=== PATIENT | male | born 1960 | race African-American/Black ===

== ENCOUNTER 2018-02-26 03:49 | Inpatient (IN) | payer OTHER ==
[~2018-02-26] VITALS: Ht 177.8 cm; Wt 81.6 kg
--- NOTE | 2018-02-26 04:00 | NUR ---
TO BED 12 A 58 YO MALE PT BIBA FROM [facility] J TUBE REPLACEMENT. PATIENT IS AWAKE, ALERT, RESPONSIVE. NONVERBAL. VSS. SKIN WARM AND DRY. NOTED PRESENCE OF LEFT NEPHROSTOMY TUBE AND SUPRAPUBIC CATHETER. JGTUBE IN PLACE, UNABLE TO ASPIRATE AND INSTILL AIR. KEPT HOB ELEVATED. COMFORT MEASURES RENDERED. SAFETY MEASURES RENDERED.
--- NOTE | 2018-02-26 04:14 | NUR ---
PATIENT TO [facility].
[2018-02-26] MEDS ORDERED: IV NS 0.9% 1,000 ML BAG IV ONE (04:30)
--- NOTE | 2018-02-26 04:30 | NUR ---
STARTED A SALINE LOCK ON THE RIGHT INDEX FINGER GAUGE 22.
[2018-02-26 05:22] LABS: CALCIUM, SERUM 9.4 mg/dL (8.5-10.1); POTASSIUM 4.1 mmol/L (3.5-5.1)
[2018-02-26 05:26] LABS: INR 1.06 (0.87-1.13)
[2018-02-26 05:28] LABS: ALBUMIN 3.3 g/dL (3.4-5.0); BILIRUBIN,DIRECT 0.1 mg/dL (0.0-0.2); BILIRUBIN,TOTAL 0.5 mg/dL (0.2-1.0); TOTAL PROTEIN, SERUM 10.2 g/dL (6.4-8.2)
[2018-02-26 05:38] LABS: BASOPHILS % (AUTO) 0.1 % (0.0-2.0); EOSINOPHILS % (AUTO) 3.9 % (0.0-6.0); HEMATOCRIT 43 % (39-51); HEMOGLOBIN 13.7 g/dL (13.5-17.5); LYMPHOCYTES # (AUTO) 2.4 /CMM (0.8-4.8); LYMPHOCYTES % (AUTO) 16.8 % (20.0-44.0); MEAN CORPUSCULAR HGB CONC 32 g/dl (31.0-36.0); MEAN CORPUSCULAR VOLUME 75 fL (80-96); MONOCYTES # (AUTO) 0.6 /CMM (0.1-1.30); MONOCYTES % (AUTO) 4.1 % (2.0-12.0); NEUTROPHILS # (AUTO) 10.6 /CMM (1.8-8.9); NEUTROPHILS % (AUTO) 75.1 % (43.0-81.0); PLATELET COUNT (AUTO) 282 /CMM (150-450); RDW COEFFICIENT OF VARIATION 19.7 (11.5-15.0); RED BLOOD CELL COUNT(AUTO) 5.67 MIL/uL (4.5-6.0); WHITE BLOOD COUNT (AUTO) 14.2 K/uL (4.3-11.0)
--- NOTE | 2018-02-26 06:00 | NUR ---
MS RN NOTE RECEIVED REPORT FROM AUTHORIZATION REPRESENTATIVEELSI HENRIQUEZ. PATIENT TO BE ADMITTED TO MED-SURGE FLOOR.
[2018-02-26] MEDS ORDERED: DOCU100T2 GT (06:06)
[2018-02-26] MEDS ORDERED: APIX5TAB GT (06:06)
[2018-02-26] MEDS ORDERED: LEVO25TA7 GT (06:06)
[2018-02-26] MEDS ORDERED: FURO-145 GT (06:06)
[2018-02-26] MEDS ORDERED: INSU100V27 SQ (06:06)
[2018-02-26] MEDS ORDERED: POTA40LI2 GT (06:06)
[2018-02-26] MEDS ORDERED: METO100T14 GT (06:06)
[2018-02-26] MEDS ORDERED: ENOX40DI SQ (06:06)
[2018-02-26] MEDS ORDERED: ASCO500T10 GT (06:06)
[2018-02-26] MEDS ORDERED: LEVE500T9 GT (06:06)
[2018-02-26] MEDS ORDERED: BLOO-140 IN (06:06)
[2018-02-26] MEDS ORDERED: DOXA2TAB GT (06:06)
[2018-02-26 06:07] LABS: APPEARANCE,URINE CLOUDY (CLEAR); COLOR,URINE DARK YELLOW (YELLOW)
[2018-02-26 06:08] LABS: BILIRUBIN,URINE NEGATIVE (NEGATIVE); BLOOD, URINE 2+ Ery/uL (NEGATIVE); KETONES,URINE NEGATIVE (NEGATIVE); LEUKOCYTE ESTERASE ,URINE 2+ (NEGATIVE); NITRITE, URINE NEGATIVE (NEGATIVE); PROTEIN,URINE 2+ mg/dl (NEGATIVE); UGLUCOSE NEGATIVE (NEGATIVE); UROBILINOGEN,URINE 0.2 EU/dL (0.2)
[2018-02-26 06:14] LABS: BACTERIA,URINE Many /HPF (None Seen); RBC,URINE 21-50 /HPF (0-2); SQUAMOUS EPITHELIAL CELL,UR Few /HPF (None Seen); URINE AMORPHOUS PHOSPHATES Many /HPF (None Seen); WBC,URINE 81-100 /HPF (0-3)
--- NOTE | 2018-02-26 06:15 | NUR ---
TRANSFERRED PATIENT TO MS BED, NO INCIDENT NOTED. JUAN FRANCISCO CALZADA AT BEDSIDE.
--- NOTE | 2018-02-26 06:25 | NUR ---
MS RN OPENING NOTE RECEIVED PATIENT ON A GURNEY, ALERT, APHASIC, ABLE TO COMPREHEND AND RESPOND TO QUESTIONS BY NODDING HIS HEAD. RESPIRATIONS EVEN AND UNLABORED, NO SOB NOTED, PATIENT ON ROOM AIR WITH O2 SAT OF 95%. PATIENT WAS TRANSFERRED TO BED, MADE COMFORTABLE. VITAL SIGNS TAKEN BP: 124/76, HR:83, TEMP 97.9. PATIENT IN STABLE CONDITION, MD WAS MADE AWARE OF PATIENT'S ARRIVAL TO THE UNIT. AWAITING FOR ORDERS FOR FURTHER CARE. WILL ENDORSE TO AM SHIFT FOR CONTINUATION OF CARE.
[2018-02-26] MEDS ORDERED: CEFTRIAXONE 1 G in IV NS 0.9% 50 ML IV SCH (06:30)
[2018-02-26] MEDS ORDERED: ONDANSETRON HCL/PF 4 MG/2 ML VIAL IVP PRN (06:30)
[2018-02-26] MEDS ORDERED: Z GUARD REMEDY 2 OZ OINT TP PRN (06:30)
[2018-02-26 08:00] VITALS: BP 139/77
[2018-02-26] MEDS: PANTOPRAZOLE 40 MG VIAL IV SCH (08:16)
[2018-02-26] MEDS: BISACODYL SUPP (10 MG) 10 MG/SUPP.RECT SUPP.RECT RC SCH (08:16)
[2018-02-26] MEDS: IV D5/0.45 NACL 1,000 ML IV PRN ×2 (08:16→23:19)
--- NOTE | 2018-02-26 08:30 | NUR ---
M/S RN - Admission Admitted pt from ER with the diagnosis of GJ-tube malfunction. Patient is awake, A/O x 2-3, non-verbal but able to make needs known by denies abdominal pain, no c/o SOB, no evidence of resp. distress. Supra-pubic catheter and left nephrostomy tube intact. IVF D5 1/2 NS at 75 ml/hr infusing well on the right index finger with no complications. Skin assessment documented and photos taken on gluteal fold excoriation, sacral MASD, GJ-tube site redness, bilateral heels. Wound and dietary triggered for low natanael and skin breakdown. Will order isoflex bed and turn/reposition q2h for skin management. All needs anticipated and met. Patient educated on the treatment plan. Admission orders noted and implemented. Fall and aspiration precautions maintained. Will continue to monitor closely.
[2018-02-26] MEDS: CEFTRIAXONE 1 G in IV NS 0.9% 50 ML IV SCH (09:20)
--- NOTE | 2018-02-26 11:20 | NUR ---
WOUND CARE CONSULT: PT PRESENTS WITH IMMOBILITY, SCARRING TO SACRAL/BUTTOCKS AREAS AND HEELS, ANKLES, LOWER LEGS. PT ALSO NOTED TO HAVE GLUTEAL CREASE EXCORIATION, PRESENT ON ADMISSION. NEPHROSTOMY TUBE, J TUBE (CLAMPED) AND SUPRAPUBIC CATH NOTED. ALL SKIN PROTECTION AND SKIN CARE RECOMMENDATIONS DISCUSSED WITH NURSING STAFF. ISOFLEX LOW AIRLOSS BED TO BE PLACED. WILL SEE PRN. DE LA PAZ IN AGREEMENT WITH PLAN OF CARE. Addendum: 02/26/18 at 1122 by PAULO BAH WNDNU Amended: Links added.
[2018-02-26] MEDS ORDERED: MINERAL OIL/PETROLATUM,WHITE 120 GM JAR TP PRN (11:30)
[2018-02-26 16:00] VITALS: BP 126/73
--- NOTE | 2018-02-26 18:36 | NUR ---
MS RN CLOSING NOTES Patient is resting comfortably in bed with no signs or symptoms of acute pain/distress. Patient has no SOB while on room air, vital signs are WNL. Peripheral IV in the right index finger is running D5 1/2 NS at 75 mL/hr. Patient received abdominal/pelvic CT scan; as per MUSHROOM LABORER, feedings can resume via J-tube, but G-tube remains occluded. All prescribed medications and treatments have been carried out. Bed is in low/locked position with call olivares in reach. Continuity of care will transfer to shift commander nurse.
--- NOTE | 2018-02-26 19:30 | NUR ---
MS RN OPENING NOTES RECEIVED PT IN BED, ALERT, AWAKE,NON VERBAL. ON ROOM AIR RESPIRATIONS EVEN, UNLABORED, NO APPARENT DISTRESS NOTED. NO S/SX OF PAIN OR DISCOMFORT NOTED. IV SITE RT INDEX FINGER INTACT, PATENT. CALL LIGHT WITHIN REACH. BED LOCKED IN LOWEST POSITION. ATTENDED ALL NEEDS. WILL CONTINUE TO MONITOR ACCORDINGLY.
[2018-02-26 20:00] VITALS: BP 127/78
[2018-02-26 22:00] VITALS: BP 126/76
[2018-02-26] MEDS: BLOOD SUGAR DIAGNOSTIC 1 EACH STRIP IN SCH (23:01)
[2018-02-26] MEDS: LEVETIRACETAM (250 MG) 250 MG TABLET PO SCH (23:23)
[2018-02-26] MEDS: METOPROLOL TARTRATE 50 MG TABLET PO SCH (23:24)
[2018-02-27] MEDS ORDERED: INSULIN LISPRO 100 UNIT SQ SCH
[2018-02-27] MEDS: BLOOD SUGAR DIAGNOSTIC 1 EACH STRIP IN SCH ×4 (01:28→17:00)
--- NOTE | 2018-02-27 07:00 | NUR ---
REPORT RECEIVED AT THE BEDSIDE. PATIENT IS RESTING COMFORTABLY IN BED. NO SOB OR DISTRESS NOTED AT THIS TIME. PATIENT REPORTS LITTLE PAIN IN HIS HEAD. WILL FOLLOW UP WITH PAIN MEDICATIONS. BED IN A LOW POSITION, CALL LIGHT WITHIN PATIENT REACH, WILL CONTINUE TO MONITOR.
--- NOTE | 2018-02-27 07:01 | NUR ---
MS RN CLOSING NOTES PT IN BED RESTING COMFORTABLY NO S/SX OF PAIN OR DISCOMFORT NOTED. KEPT CLEAN AND COMFORTABLE. ATTENDED ALL NEEDS. WILL CONTINUE TO MONITOR ACCORDINGLY.
--- NOTE | 2018-02-27 07:59 | NUR ---
EMAIL MARKETING INTERN, MURPHY, ON FLOOR. INFORMED EMAIL MARKETING INTERN OF ANTONIA'S NOTE YESTERDAY ABOUT STARTING FEEDING THROUGH THE J TUBE YESTERDAY. EMAIL MARKETING INTERN, STATES OK TO RESUME FACILITY FEEDING. WILL PLACE ORDERS AND START.
[2018-02-27 08:00] VITALS: BP 115/77
[2018-02-27] MEDS: LEVETIRACETAM (250 MG) 250 MG TABLET PO SCH ×2 (08:26→21:18)
[2018-02-27] MEDS: LEVOTHYROXINE SODIUM 25 MCG TABLET PO SCH (08:26)
[2018-02-27] MEDS: CEFTRIAXONE 1 G in IV NS 0.9% 50 ML IV SCH (08:26)
[2018-02-27] MEDS: BISACODYL SUPP (10 MG) 10 MG/SUPP.RECT SUPP.RECT RC SCH (08:27)
[2018-02-27] MEDS: ASCORBIC ACID 500 MG TABLET PO SCH (08:27)
[2018-02-27] MEDS: METOPROLOL TARTRATE 50 MG TABLET PO SCH ×2 (08:27→21:19)
[2018-02-27] MEDS: PANTOPRAZOLE 40 MG VIAL IV SCH (08:27)
[2018-02-27] MEDS ORDERED: ENOXAPARIN SODIUM 40 MG/0.4 ML DISP.SYRIN SQ SCH (09:00)
[2018-02-27] MEDS ORDERED: DOCUSATE SODIUM 100 MG CAPSULE PO SCH (09:00)
--- NOTE | 2018-02-27 09:10 | NUR ---
ADMINISTERED SUPPOSITORY ORDERED. PT TOLERATED WELL.
--- NOTE | 2018-02-27 10:07 | NUR ---
PT HAS A SMALL BOWEL MOVEMENT AFTER SUPPOSITORY PLACEMENT.
[2018-02-27] MEDS: GLYTROL 1,000 ML BAG GT PRN (10:12)
--- NOTE | 2018-02-27 10:26 | NUR ---
CALLED PHARMACY ABOUT MISSING ELEQUIS. PHARMACY STATE THEY ARE SENDING IT.
[2018-02-27 10:28] LABS: BASOPHILS # (AUTO) 0.1 /CMM (0.0-0.2); BASOPHILS % (AUTO) 0.5 % (0.0-2.0); EOSINOPHILS % (AUTO) 4.4 % (0.0-6.0); HEMATOCRIT 38 % (39-51); HEMOGLOBIN 12.1 g/dL (13.5-17.5); LYMPHOCYTES # (AUTO) 2.6 /CMM (0.8-4.8); MEAN CORPUSCULAR HGB CONC 32 g/dl (31.0-36.0); MEAN CORPUSCULAR VOLUME 75 fL (80-96); MONOCYTES # (AUTO) 0.5 /CMM (0.1-1.30); MONOCYTES % (AUTO) 4.6 % (2.0-12.0); NEUTROPHILS % (AUTO) 68.5 % (43.0-81.0); PLATELET COUNT (AUTO) 263 /CMM (150-450); RED BLOOD CELL COUNT(AUTO) 5.05 MIL/uL (4.5-6.0); WHITE BLOOD COUNT (AUTO) 11.7 K/uL (4.3-11.0)
[2018-02-27 10:54] LABS: CALCIUM, SERUM 8.8 mg/dL (8.5-10.1); CREATININE 0.9 mg/dL (0.6-1.3); PHOSPHORUS 2.6 mg/dL (2.5-4.9); POTASSIUM 3.6 mmol/L (3.5-5.1)
[2018-02-27 10:57] LABS: THYROID STIMULATING HORMONE 1.429 uIU/mL (0.358-3.74)
--- NOTE | 2018-02-27 10:59 | NUR ---
CONFIRMED WITH SURGERY, PT ON SCHEDULE FOR TOMORROW MORNING. WILL PLACE NPO POST MIDNIGHT.
--- NOTE | 2018-02-27 12:12 | NUR ---
CALLED PHARMACY AGAIN PT ISIDRO IS STILL NOT ON THE FLOOR. THEY STATE SOMEONE WILL DELIVER TO THE CASSETTE.
--- NOTE | 2018-02-27 12:15 | NUR ---
GLORIA ARRINGTON, ON FLOOR. ASKED ABOUT FLUIDS PATIENT HAS STARTED FEEDING. SENIOR LEAD PROJECT MANAGER STATES OK TO HOLD FLUIDS FOR NOW AND RESTART ONCE PT IS NPO TONIGHT MIDNIGHT.
[2018-02-27] MEDS: APIXABAN 5 MG TABLET GT SCH ×2 (13:41→16:59)
[2018-02-27 16:00] VITALS: BP 97/67
[2018-02-27] MEDS: DOCUSATE SODIUM LIQ 100 MG/10 ML UDC GT SCH (16:59)
[2018-02-27] MEDS: DOXAZOSIN MESYLATE (1 MG) 1 MG TABLET PO SCH (17:00)
--- NOTE | 2018-02-27 18:50 | NUR ---
NO SIGNIFICANT CHANGES IN PATIENT CONDITION. NO SOB OR DISTRESS NOTED. PATIENT DOES NOT APPEAR TO BE IN PAIN, NO FACIAL GRIMACE. BED IN A LOW POSITION, TUBE FEEDING TOLERATED WELL. WILL ENDORSE TO BUSINESS ASST TO STOP TUBE FEEDING AT MIDNIGHT FOR PREP FOR PROCEDURE TOMORROW.
--- NOTE | 2018-02-27 19:35 | NUR ---
MS RN OPENING NOTES RECEIVED PT IN BED ALERT, AWAKE, NONVERBAL, ON ROOM AIR, RESPIRATIONS EVEN, UNLABORED, NO APPARENT DISTRESS NOTED. NO S/SX OF PAIN OR DISCOMFORT NOTED. IV SITE RT INDEX FINGER INTACT, PATENT. CALL LIGHT WITHIN REACH. BED LOCKED IN LOWEST POSITION. ATTENDED ALL NEEDS. WILL CONTINUE TO MONITOR ACCORDINGLY.
[2018-02-27 20:00] VITALS: BP 98/67
[2018-02-27] MEDS: ACETAMINOPHEN 325 MG TABLET PO PRN (21:18)
[2018-02-27 22:00] VITALS: BP 122/66
[2018-02-28] MEDS: BLOOD SUGAR DIAGNOSTIC 1 EACH STRIP IN SCH ×5 (01:17→23:59)
--- NOTE | 2018-02-28 06:41 | NUR ---
MS RN CLOSING NOTES PT IN BED RESTING COMFORTABLY, ON ROOM AIR, NO SOB NOTED. NPO AFTER MIDNIGHT FOR EGD WITH GT/JT INSERTION. DENIES ANY PAIN OR DISCOMFORT AT THIS TIME. CALL LIGHT WITHIN REACH, BED LOCKED IN LOWEST POSITION. KEPT CLEAN AND COMFORTABLE, ATTENDED ALL NEEDS. WILL ENDORSE TO DAY SHIFT FOR CONTINUITY OF CARE.
[2018-02-28] MEDS ORDERED: ANESTHESIA TRAY IN PYXIS 1 EA TRAY MC ONE (07:01)
[2018-02-28] MEDS: LEVOTHYROXINE SODIUM 25 MCG TABLET PO SCH (07:30)
--- NOTE | 2018-02-28 07:30 | NUR ---
DID NOT ADMINISTER LEVOTHYROXINE. PATIENT IS IN OPERATION ROOM.
--- NOTE | 2018-02-28 07:31 | NUR ---
RN OPENING NOTES RECEIVED REPORT FROM KAVITHA CALZADA. PATIENT IS IN OPERATION ROOM FOR G TUBE REPLACEMENT. WILL ASSESS AND MONITOR WHEN PATIENT RETURNS TO THE UNIT.
[2018-02-28 08:00] VITALS: BP 101/69
[2018-02-28] MEDS: METOPROLOL TARTRATE 50 MG TABLET PO SCH ×2 (09:00→21:34)
[2018-02-28] MEDS: BISACODYL SUPP (10 MG) 10 MG/SUPP.RECT SUPP.RECT RC SCH (09:00)
--- NOTE | 2018-02-28 09:00 | NUR ---
PATIENT ARRIVED BACK TO THE UNIT. VITAL SIGNS WITHIN NORMAL LIMITS. WILL CONTINUE TO MONITOR.
[2018-02-28] MEDS: DOCUSATE SODIUM LIQ 100 MG/10 ML UDC GT SCH ×2 (09:29→17:16)
[2018-02-28] MEDS: ASCORBIC ACID 500 MG TABLET PO SCH (09:29)
[2018-02-28] MEDS: APIXABAN 5 MG TABLET GT SCH ×2 (09:29→17:15)
[2018-02-28] MEDS: LEVETIRACETAM (250 MG) 250 MG TABLET PO SCH ×2 (09:29→21:24)
[2018-02-28] MEDS: PANTOPRAZOLE 40 MG VIAL IV SCH (09:30)
[2018-02-28] MEDS: CEFTRIAXONE 1 G in IV NS 0.9% 50 ML IV SCH (09:30)
[2018-02-28 16:00] VITALS: BP 108/65
[2018-02-28] MEDS: GLYTROL 1,000 ML BAG GT PRN (16:34)
[2018-02-28] MEDS: DOXAZOSIN MESYLATE (1 MG) 1 MG TABLET PO SCH (17:16)
--- NOTE | 2018-02-28 18:28 | NUR ---
MS RN CLOSING NOTES PATIENT IS RESTING IN NO APPARENT DISTRESS. BEDSIDE RAILS ARE UPX2. BED IS LOCKED AND LOWERED. CALL LIGHT IS WITHIN REACH. ALL NEEDS WERE MET. IV LINE IS PATENT AND INTACT. WILL ENDORSE CARE TO CLIENT SOLUTIONS DIRECTOR NURSE FOR DOC.
--- NOTE | 2018-02-28 19:45 | NUR ---
RN OPENING NOTES RECEIVED REPORT FROM DAYSHIFT RN KATELYNN. FOUND Pt AWAKE IN BED. NO S/S OF ACUTE DISTRESS OR SOB NOTED. Pt IS NONVERBAL, BUT IS ABLE TO UNDERSTAND QUESTIONS AND NODS HEAD TO YES OR NO QUESTIONS. Pt ON GT FEED OF GLYTROL @60ML/HR. IV ACCESS ON R INDEX FINGER #22G, SL. SAFETY MEASURES IN PLACE. BED LOW, LOCKED, HOB ELEVATED, SIDE RAILS UP, CALL LIGHT AND BEDSIDE TABLE WITHIN REACH. WILL CONTINUE TO MONITOR Pt THROUGHOUT THE NIGHT FOR SAFETY.
[2018-02-28 20:00] VITALS: BP 110/71
--- NOTE | 2018-03-01 00:10 | NUR ---
RN NOTES ACCUCHECK AT 0000: 93. NO INSULIN COVERAGE NEEDED AT THIS TIME. ON GT FEED GLYTROL @60ML/HR
[2018-03-01] MEDS: BLOOD SUGAR DIAGNOSTIC 1 EACH STRIP IN SCH ×2 (06:11→12:44)
--- NOTE | 2018-03-01 06:16 | NUR ---
RN NOTES 0600 BG 121. NO INSULIN COVERAGE NEEDED AT THIS TIME.
[2018-03-01] MEDS: ACETAMINOPHEN 325 MG TABLET PO PRN (06:22)
--- NOTE | 2018-03-01 06:25 | NUR ---
RN NOTES Pt C/O SOME PAIN ON HIS RT CHEEK. ADMINISTERED PRN TYLENOL.
--- NOTE | 2018-03-01 06:35 | NUR ---
RN CLOSING NOTES NO SIGNIFICANT CHANGES IN Pt's CONDITION. NO S/S OF ACUTE DISTRESS OR SOB NOTED DURING THE NIGHT. ALL NEEDS MET AND ATTENDED TO. SAFETY MEASURES IN PLACE. WILL ENDORSE TO DAYSHIFT RN FOR Pt's DOC.
--- NOTE | 2018-03-01 07:03 | NUR ---
MS/RN OPENING NOTE PATIENT IN BED AWAKE. RESPONSES TO VERBAL AND TACTILE STIMULI BY BLINKING AND GESTURES. RESPIRATION REGULAR AND UNLABORED. DENIES SOB, DENIES PAIN AT THIS TIME. GT FEEDING ON AND HOB ELEVATED. NEPHROSTOMY BAG EMPTY. SUPRAPUBIC GARVEY CATH DRAINING FREELY. RIGHT INDEX G 22 PATENT AND SALINE LOCKED. BED LOW AND LOCKED. SIDE RAILS UP X3. CALL LIGHT WITHIN REACH. WILL CONTINUE TO MONITOR.
[2018-03-01 08:00] VITALS: BP 102/66
[2018-03-01] MEDS: PANTOPRAZOLE 40 MG VIAL IV SCH (08:16)
[2018-03-01] MEDS: LEVOTHYROXINE SODIUM 25 MCG TABLET PO SCH (08:16)
[2018-03-01] MEDS: ASCORBIC ACID 500 MG TABLET PO SCH (08:16)
[2018-03-01] MEDS: DOCUSATE SODIUM LIQ 100 MG/10 ML UDC GT SCH (08:16)
[2018-03-01] MEDS: LEVETIRACETAM (250 MG) 250 MG TABLET PO SCH (08:16)
[2018-03-01] MEDS: BISACODYL SUPP (10 MG) 10 MG/SUPP.RECT SUPP.RECT RC SCH (08:16)
[2018-03-01 08:17] VITALS: BP 102/66
[2018-03-01] MEDS: METOPROLOL TARTRATE 50 MG TABLET PO SCH (08:17)
[2018-03-01] MEDS: CEFTRIAXONE 1 G in IV NS 0.9% 50 ML IV SCH (08:50)
[2018-03-01] MEDS ORDERED: CEFT1FRO2 IV (10:24)
[2018-03-01] MEDS: APIXABAN 5 MG TABLET GT SCH (11:09)
--- NOTE | 2018-03-01 14:10 | NUR ---
MS/RN CLOSING NOTE PATIENT AWAKE AND RESPONSIVE TO VERBAL AND TACTILE STIMULI VIA GESTURES AND BLINKING. DENIES SOB. RESPIRATION REGULAR AND UNLABORED. DENIES PAIN. PATIENT IN NO APPARENT DISTRESS. RIGHT INDEX IV G 22 PATENT. SUPRAPUBIC GARVEY CATH DRAINED 250 ML CLEAR AND YELLOW COLOR URINE. LEFT SIDED PERCUTANEOUS NEPHROSTOMY WITH NO DRAINAGE AT THIS TIME. GOOD AND GENTLE SKIN CARE RENDERED. KEPT CLEAN AND COMFORTABLE. BED LOW AND LOCKED. SIDE RAILS UP X3. REPORT GIVEN TO BILLY CALZADA RECEIVING NURSE. PHYSICAN PRESCRIPTION SEND WITH PATIENT AND COPY IN THE CHART. PATIENT LEFT THE HOSPITAL ON A GURNEY VIA ARRANGED AMBULANCE. PATIENT LEFT IN STABLE CONDITION.
== END 2018-03-01 14:24 | DRG 393 ==
LOC: ER 03:54 → MED 05:55
PROVIDERS: ADMIT Internal Medicine Pulmonary Disease; ATTEND Internal Medicine Pulmonary Disease
PROC: 0DH63UZ Insertion of Feeding Device into Stomach, Percutaneous Approach (ICD-10-PCS; principal; 2018-02-28 07:51)
DX: K94.13 Enterostomy malfunction (principal); A41.9 Sepsis, unspecified organism; I69.359 Hemiplegia and hemiparesis following cerebral infarction affecting unspecified side; R13.10 Dysphagia, unspecified; I11.0 Hypertensive heart disease with heart failure; I50.9 Heart failure, unspecified; E44.1 Mild protein-calorie malnutrition; L03.311 Cellulitis of abdominal wall; N39.0 Urinary tract infection, site not specified; N13.2 Hydronephrosis with renal and ureteral calculous obstruction; K94.12 Enterostomy infection; Y84.9 Medical procedure, unspecified as the cause of abnormal reaction of the patient, or of later complication, without mention of misadventure at the time of the procedure; Y82.9 Unspecified medical devices associated with adverse incidents; Y92.129 Unspecified place in nursing home as the place of occurrence of the external cause; I69.320 Aphasia following cerebral infarction; Z79.4 Long term (current) use of insulin; Z79.899 Other long term (current) drug therapy; K56.41 Fecal impaction; L98.9 Disorder of the skin and subcutaneous tissue, unspecified; Z87.442 Personal history of urinary calculi; E11.9 Type 2 diabetes mellitus without complications
CPT/HCPCS: 36415; 43246; 71045-TC; 80048-TC; 80061-TC; 80076-TC; 81000-TC; 82140-TC; 82962-TC; 83605-TC; 83690-TC; 83735-TC; 83880; 84100-TC; 84443-TC; 85025-TC; 85730-TC; 87040-TC; 87081-TC; 87086-TC; A4216; A4217; A4606; A6402; C9113; J0696; J2704; J3490; J7030; Z7610

== ENCOUNTER 2018-03-16 08:52 | Emergency (ER) | payer OTHER ==
[~2018-03-16] VITALS: Ht 180.3 cm; Wt 113.4 kg
[~2018-03-16 08:52] MED LIST: APIX5TAB GT; ASCO500T10 GT; BLOO-140 IN; CEFT1FRO2 IV; DOCU100T2 GT; DOXA2TAB GT; ENOX40DI SQ; FURO-145 GT; INSU100V27 SQ; LEVE500T9 GT; LEVO25TA7 GT; METO100T14 GT; POTA40LI2 GT
--- NOTE | 2018-03-16 09:05 | NUR ---
Called [facility], Per Adithya, pt is here for GTube reinsertion.
[2018-03-16] MEDS ORDERED: DIATR MEGLU/DIATRIZOATE SODIUM 30 ML BOTTLE (GASTROGRAPHIN) ONE (09:41)
--- NOTE | 2018-03-16 10:00 | NUR ---
XRAY DONE AT BEDSIDE, WITH GASTROGRAFIN
[2018-03-16 11:22] VITALS: BP 134/67
--- NOTE | 2018-03-16 11:25 | NUR ---
tylenol via gt given for pain
[2018-03-16] MEDS ORDERED: ACETAMINOPHEN 325 MG TABLET ONE (11:27)
--- NOTE | 2018-03-16 11:32 | NUR ---
pt dc to snf in stable condition. nad noted. report given to emt. no further complaints. leaving via ambulance in stable condition.
[2018-03-16] MEDS ORDERED: ACETAMINOPHEN 325 MG TABLET MC ONE (12:00)
[2018-03-17] MEDS ORDERED: NUT.237L30 GT (13:08)
[2018-03-17] MEDS ORDERED: ACET160S2 GT (13:08)
[2018-03-17] MEDS ORDERED: HYDR-552 GT (13:08)
== END 2018-03-16 11:23 | disposition home or self-care (01) ==
LOC: ER 08:53
DX: K94.23 Gastrostomy malfunction (principal); I11.0 Hypertensive heart disease with heart failure; I50.9 Heart failure, unspecified; E11.9 Type 2 diabetes mellitus without complications; E03.9 Hypothyroidism, unspecified; Z86.73 Personal history of transient ischemic attack (TIA), and cerebral infarction without residual deficits; Z79.4 Long term (current) use of insulin; Z79.01 Long term (current) use of anticoagulants
CPT/HCPCS: 74018; A4606; Q9963; Z7610

== ENCOUNTER 2018-03-16 23:50 | Emergency (ER) | payer OTHER ==
[~2018-03-16] VITALS: Ht 180.3 cm; Wt 90.7 kg
[2018-03-16 23:55] VITALS: BP 115/88
[2018-03-17] MEDS ORDERED: Z GUARD REMEDY 4 OZ OINT TP ONE (00:29)
[2018-03-17] MEDS ORDERED: Z GUARD REMEDY 2 OZ OINT TP ONE (00:30)
[2018-03-17] MEDS ORDERED: NUT.237L30 GT (13:08)
[2018-03-17] MEDS ORDERED: HYDR-552 GT (13:08)
[2018-03-17] MEDS ORDERED: ACET160S2 GT (13:08)
== END 2018-03-17 02:20 ==
LOC: ER 23:51
DX: K94.23 Gastrostomy malfunction (principal); I11.0 Hypertensive heart disease with heart failure; I50.9 Heart failure, unspecified; E11.9 Type 2 diabetes mellitus without complications; Z86.73 Personal history of transient ischemic attack (TIA), and cerebral infarction without residual deficits; E03.9 Hypothyroidism, unspecified; Z79.4 Long term (current) use of insulin; Z79.01 Long term (current) use of anticoagulants
CPT/HCPCS: 74018; A4606; Z7610

== ENCOUNTER 2018-03-17 12:24 | Inpatient (IN) | payer OTHER ==
[~2018-03-17] VITALS: Ht 180.3 cm; Wt 82.6 kg
--- NOTE | 2018-03-17 12:30 | NUR ---
BB PRIVATE EMS FROM [facility] FOR GT RE-INSERTION, PULLED OUT TODAY, PT WAS HERE YESTERDAY FOR SAME, NAD NOTED, VSS, RESP EVEN AND UNLABORED, PT WAS PUT ON MONITOR AND HOSPITAL GOWN. AT .
--- NOTE | 2018-03-17 12:59 | NUR ---
CALLED NURSING CARROTING MACHINE OFFBEARER AND REQUESTED A MED SURG RM FOR THIS PT.
[2018-03-17] MEDS ORDERED: GENTAMICIN 80 MG in IV D5W 50 ML IV ONE (13:00)
[2018-03-17] MEDS ORDERED: VANCOMYCIN 1 GM in IV D5W 250 ML IV ONE (13:00)
[2018-03-17] MEDS ORDERED: NUT.237L30 GT (13:08)
[2018-03-17] MEDS ORDERED: ACET160S2 GT (13:08)
[2018-03-17] MEDS ORDERED: HYDR-552 GT (13:08)
[2018-03-17 13:10] LABS: BASOPHILS # (AUTO) 0.4 /CMM (0.0-0.2); BASOPHILS % (AUTO) 2.6 % (0.0-2.0); EOSINOPHILS % (AUTO) 3.5 % (0.0-6.0); HEMATOCRIT 43 % (39-51); LYMPHOCYTES # (AUTO) 2.8 /CMM (0.8-4.8); MEAN CORPUSCULAR HGB CONC 33 g/dl (31.0-36.0); MEAN CORPUSCULAR VOLUME 72 fL (80-96); MONOCYTES # (AUTO) 0.9 /CMM (0.1-1.30); MONOCYTES % (AUTO) 5.6 % (2.0-12.0); NEUTROPHILS # (AUTO) 10.9 /CMM (1.8-8.9); NEUTROPHILS % (AUTO) 70.3 % (43.0-81.0); PLATELET COUNT (AUTO) 307 /CMM (150-450); RDW COEFFICIENT OF VARIATION 18.1 (11.5-15.0); RED BLOOD CELL COUNT(AUTO) 5.99 MIL/uL (4.5-6.0); WHITE BLOOD COUNT (AUTO) 15.5 K/uL (4.3-11.0)
[2018-03-17 13:25] LABS: INR 1.09 (0.85-1.15)
--- NOTE | 2018-03-17 13:34 | NUR ---
PT IS ASSIGNED TO MED SURG RM# [id number], PT IS DIAGNOSED WITH ABDOMINAL WALL CELLULITIS, AND ABRAHAN JARAMILLO IS THE ACCEPTING MD.
[2018-03-17 13:39] LABS: CALCIUM, SERUM 9.7 mg/dL (8.5-10.1); CARBON DIOXIDE 27 mmol/L (21-32); CHLORIDE 104 mmol/L (98-107); CREATININE 1.1 mg/dL (0.6-1.3); GLUCOSE 109 mg/dL (74-106); POTASSIUM 3.9 mmol/L (3.5-5.1); SODIUM SERUM 141 mmol/L (136-145); UREA NITROGEN, BLOOD 20 mg/dL (7-18)
[2018-03-17 13:43] LABS: LYMPHOCYTES % (MANUAL) 23 % (16-48); MONOCYTES % (MANUAL) 7 % (0-11.0); NEUTROPHILS % (MANUAL) 66 (42-76)
[2018-03-17 13:44] LABS: ALANINE AMINOTRANSFERASE 22 U/L (12-78); ALBUMIN 3.2 g/dL (3.4-5.0); ALKALINE PHOSPHATASE 96 U/L (46-116); ASPARTATE AMINOTRANSFERASE 18 U/L (15-37); BILIRUBIN,DIRECT 0.2 mg/dL (0.0-0.2); BILIRUBIN,TOTAL 0.4 mg/dL (0.2-1.0); EOSINOPHILS % (MANUAL) 4 % (0-4); TOTAL PROTEIN, SERUM 10.3 g/dL (6.4-8.2)
[2018-03-17 13:47] LABS: TROPONIN I < 0.017 ng/mL (0.00-0.056)
--- NOTE | 2018-03-17 14:45 | NUR ---
MS/manager equipment Patient admitted from emergency room with GT site cellulitis. Fully admitted with all history coming from chart and previous admission due to mental status. Pictures taken. Awating orders. Wound consult, KCI mattress and SCD pumps ordered.
[2018-03-17 14:59] LABS: APPEARANCE,URINE Turbid (CLEAR); BILIRUBIN,URINE Negative (NEGATIVE); BLOOD, URINE Large Ery/uL (NEGATIVE); COLOR,URINE Yellow (YELLOW); KETONES,URINE Negative (NEGATIVE); LEUKOCYTE ESTERASE ,URINE Large (NEGATIVE); NITRITE, URINE Negative (NEGATIVE); PROTEIN,URINE >=300 mg/dl (NEGATIVE); UGLUCOSE Negative (NEGATIVE); UROBILINOGEN,URINE 0.2 EU/dL (0.2)
[2018-03-17] MEDS ORDERED: GLYTROL 1,000 ML BAG GT SCH (15:00)
[2018-03-17] MEDS ORDERED: Z GUARD REMEDY 2 OZ OINT TP PRN (15:00)
[2018-03-17] MEDS ORDERED: DEXTROSE 50%-WATER 50 ML DISP.SYRIN IV PRN (15:00)
[2018-03-17] MEDS ORDERED: ACETAMINOPHEN 325 MG TABLET PO PRN (15:00)
[2018-03-17] MEDS ORDERED: ONDANSETRON HCL/PF 4 MG/2 ML VIAL IVP PRN (15:00)
[2018-03-17 15:02] LABS: PH,URINE >9.0 (5.0-8.0)
[2018-03-17] MEDS ORDERED: FEE PK DOSING 1 MIN EA MC ONE (15:03)
[2018-03-17 15:16] LABS: BACTERIA,URINE 3+ /HPF (None Seen); RBC,URINE TOO NUMEROUS TO COUN /HPF (0-2); SQUAMOUS EPITHELIAL CELL,UR None Seen /HPF (None Seen); TRIPLE PHOSPHATE CRYSTAL,UR Many /HPF (None Seen); WBC,URINE TOO NUMEROUS TO COUN /HPF (0-3)
[2018-03-17 16:00] VITALS: BP 150/85
--- NOTE | 2018-03-17 16:00 | NUR ---
MS/RN May use GT Per Dr Larisa jj to use GT for both feedings and medications.
[2018-03-17] MEDS ORDERED: APIXABAN 5 MG TABLET GT ONE (17:00)
--- NOTE | 2018-03-17 17:15 | NUR ---
MS/RN Blood sugar Blood sugar at 5p - 102, no coverage needed.
[2018-03-17] MEDS: MUPIROCIN OINT 2% 22 GM TUBE TP SCH (17:34)
[2018-03-17] MEDS: BLOOD SUGAR DIAGNOSTIC 1 EACH STRIP IN SCH ×2 (17:34→23:05)
[2018-03-17] MEDS: HYDROCODONE/APAP 5/325MG 1 EACH TABLET GT SCH (17:34)
--- NOTE | 2018-03-17 18:45 | NUR ---
MS/RN Dr Tipton Per Dr Tipton - patient may be discharged to home tomorrow, and follow up in the office in 7-10 days. Will need a prescription for keflex 500mg TID for five days. Whilst still in the hospital, continue with both flagyl and levaquin, both IV. Orginal order for ancef to be discontinued. Addendum: 03/17/18 at 1947 by EVERTON WATT WRONG PATIENT, PLEASE DISCARD NOTE.
--- NOTE | 2018-03-17 19:30 | NUR ---
MS RN OPENING NOTES: PATIENT IN BED, AWAKE, BUT NON VERBAL, ONLY MAKES MUFFLED INCOHERENT SOUNDS, ON ROOM AIR, BREATHING EVEN AND UNLABORED. APPEARS CALM AND IN NO DISTRESS. BREATH SOUNDS CLEAR, BUT DIMINISHED AT BASES. PATIENT HAS GTUBE OVER UPPER MID ABDOMEN, NOTED REDNESS WITH MODERATE AMOUNT OF SEROSANGUINEOUS TO PURULENT DISCHARGE FROM STOMA SITE. SURROUNDING ABDOMEN WITH SOME REDNESS WELL. ABDOMEN IS SOFT AND NON TENDER. PATIENT HAS SUPRAPUBIC CATHETER DRAINING ARIES COLORED URINE. PIV OVER R UPPER ARM G 20 AND LEFT THUMB G22 INTACT AND PATENT TO FLUSH. PROVIDED FOR COMFORT AND SAFETY. BED IN LOWEST AND LOCKED POSITION, SIDERAILS UP X 3. WILL CONT TO MONITOR.
--- NOTE | 2018-03-17 19:39 | NUR ---
MS/RN End note Patient remains in stable condition. Continue to await feeding to be delivered, KCI mattress placed. Will endorse to night custodian.
[2018-03-17 20:00] VITALS: BP 113/74
--- NOTE | 2018-03-17 20:30 | NUR ---
ANTONIA ANDERSON, ASSISTANT PARALEGAL (GI) AT BEDSIDE TO ASSESS PATIENT. GT SITE WOUND CX AND GS SPECIMEN COLLECTED, ORDERED FOR Q 4 WOUND TREATMENT OF GT SITE WITH NS, PAT DRY, APPLY MUPIROCIN AROUND STOMA SITE AND COVER WITH 4X4 GAUZE, NO TAPE. SHE ALSO ORDERED US ABDOMEN FOR GT SITE ABSCESS/ CELLULITIS, FECAL OCCULT BLOOD IN STOOL AND FOR PATIENT TO BE KEPT NPO/ NO TUBE FEEDINGS FOR TONIGHT UNTIL FURTHER ORDERS IN THE AM.
[2018-03-17] MEDS: LEVETIRACETAM SOL (5 ML) 100 MG/ML UDC GT SCH ×2 (21:00→23:05)
--- NOTE | 2018-03-17 21:04 | NUR ---
US TECH AT BEDSIDE.
[2018-03-17] MEDS: PANTOPRAZOLE 40 MG VIAL IV SCH (21:19)
--- NOTE | 2018-03-17 22:30 | NUR ---
INFORMED ANTONIA ANDERSON FANS CLERK, THAT PATIENT HAS HX OF SEIZURES AND IS ON KEPPRA PER GT SCHEDULED TONIGHT. PER ANTONIA, OK TO PUT PATIENT ON NPO EXCEPT MEDS BUT TO ASSERT PLACEMENT BY AUSCULTATION FIRST.
--- NOTE | 2018-03-17 22:45 | NUR ---
CALLED DR LAI, INFORMED HIM THAT GI WANTS PATIENT ON NPO EXCEPT MEDS FOR NOW UNTIL FURTHER ORDERS IN THE AM. ASKED HIM IF HE WOULD LIKE PATIENT TO BE ON IV FLUIDS, CONSIDERING PATIENT'S HX OF CHF AND DM. INFORMED HIM MOST RECENT BLOOD SUGAR WAS 106. ORDER FOR D5 1/2 NS TO RUN AT 60 ML/HR GIVEN. NOTED AND CARRIED OUT.
[2018-03-17] MEDS: DOXAZOSIN MESYLATE (1 MG) 1 MG TABLET PO SCH (23:05)
--- NOTE | 2018-03-17 23:21 | NUR ---
BLOOD SUGAR CHECKED AT 10 MG/DL. STARTED IV FLUID OF D5 1/2 NS RUNNING AT 60 ML/HR. Addendum: 03/18/18 at 0001 by YUNG NINO RN CORRECTION: BS: 101 MG/DL, NOT 10 MG/DL.
[2018-03-17] MEDS: IV D5/0.45 NACL 1,000 ML IV PRN (23:25)
[2018-03-18] MEDS: VANCOMYCIN 1 GM in IV NS 0.9% 250 ML IV SCH ×2 (01:00→13:11)
[2018-03-18] MEDS: MUPIROCIN OINT 2% 22 GM TUBE TP SCH ×2 (03:43→17:33)
--- NOTE | 2018-03-18 05:00 | NUR ---
RN NOTES: MORNING CARE RENDERED. NOTED BRIGHT YELLOW, MUCOID SECRETION LEAKING FROM STOMA SITE. CLEANSED WITH NS, PATTED DRY, AND APPLIED GAUZE. CONT TO MONITOR FOR CHANGES IN SKIN CONDITION.
[2018-03-18] MEDS: BLOOD SUGAR DIAGNOSTIC 1 EACH STRIP IN SCH ×4 (05:58→23:03)
--- NOTE | 2018-03-18 06:05 | NUR ---
RN NOTES: BLOOD SUGAR CHECKED AT 115 MG/DL, NO INSULIN NEEDED AT THIS TIME.
--- NOTE | 2018-03-18 07:19 | NUR ---
MS RN CLOSING NOTES: PATIENT IN BED, AOX1, APHASIC BUT ABLE TO MAKE NEEDS KNOWN WITH GESTURE. APPEARS CALM AND IN NO DISTRESS. PIV OVER R UPPER ARM INTACT AND INFUSING WELL WITH D5 1/2 NS RUNNING AT 60 ML/HR. G-J TUBE IN PLACE, LOCAL WOUND CARE OVER STOMA DONE ORDERED. SUPRAPUBIC CATHETER DRAINING ARIES COLORED URINE, LEFT MIDBACK NEPHROSTOMY TUBE DRAINING CLOUDY YELLOW URINE. MAINTAINED ON NPO EXCEPT MEDS FOR NOW UNTIL FURHTER ORDERS FROM GI. PROVIDED FOR COMFORT AND SAFETY. BED IN LOWEST AND LOCKED POSITION, SIDERAILS UP X3, CALL LIGHT WITHIN REACH. BED ALARMS ON. ELDORSE TO AM RN FOR DOC.
[2018-03-18 08:00] VITALS: BP 110/71
[2018-03-18 08:03] LABS: ALBUMIN 3.2 g/dL (3.4-5.0); BILIRUBIN,TOTAL 0.6 mg/dL (0.2-1.0); CREATININE 1.1 mg/dL (0.6-1.3); PHOSPHORUS 3.2 mg/dL (2.5-4.9); POTASSIUM 4.2 mmol/L (3.5-5.1)
[2018-03-18 08:13] LABS: *SPE A/G RATIO 0.6 (0.7-1.7); *SPE ALBUMIN 3.3 g/dL (2.9-4.4); *SPE ALPHA-1-GLOBULIN 0.3 g/dL (0.0-0.4); *SPE ALPHA-2-GLOBULIN 1.1 g/dL (0.4-1.0); *SPE BETA GLOBULIN 1.4 g/dL (0.7-1.3); *SPE GLOBULIN, TOTAL 5.9 g/dL (2.2-3.9); *SPE M-SPIKE Not Observed g/dL (Not Observed); *SPEGAMMA GLOBULIN 3.1 g/dL (0.4-1.8)
[2018-03-18] MEDS: LEVETIRACETAM SOL (5 ML) 100 MG/ML UDC GT SCH (08:56)
[2018-03-18] MEDS: ASCORBIC ACID 500 MG TABLET GT SCH (08:57)
[2018-03-18] MEDS: FUROSEMIDE 20 MG TABLET GT SCH (08:57)
[2018-03-18] MEDS: POTASSIUM CHLORIDE 20 MEQ POWDER PACKET GT SCH (08:57)
[2018-03-18] MEDS: HYDROCODONE/APAP 5/325MG 1 EACH TABLET GT SCH ×3 (08:57→17:00)
[2018-03-18] MEDS: LEVOTHYROXINE SODIUM 25 MCG TABLET GT SCH (08:58)
--- NOTE | 2018-03-18 09:00 | NUR ---
MS/RN Medications Medications given via GT.
--- NOTE | 2018-03-18 09:46 | NUR ---
WOUND CARE CONSULT: PT PRESENTS WITH LEAKAGE OF CLAMPED G TUBE AND SURROUNDING SKIN IRRITATION. SKIN TO BE KEPT CLEAN AND DRY. DEFER TO MD FOR G TUBE. GI MD ON CASE. SCARRING NOTED TO LEGS AND SACRAL/BUTTOCKS AREAS. NEPHROSTOMY TUBE NOTED WELL SUPRAPUBIC CATH. PT ON FIRST STEP MATTRESS. ALL SKIN PROTECTION MEASURES IN PLACE AND DISCUSSED WITH NURSING STAFF. WILL SEE PRN. MD IN AGREEMENT WITH PLAN OF CARE. CURRENT AVIVA SCORE IS 9. Addendum: 03/18/18 at 0948 by PAULO BAH WNDNU Amended: Links added.
[2018-03-18 10:25] LABS: BASOPHILS # (AUTO) 0.2 /CMM (0.0-0.2); BASOPHILS % (AUTO) 1.4 % (0.0-2.0); HEMATOCRIT 44 % (39-51); HEMOGLOBIN 14.8 g/dL (13.5-17.5); LYMPHOCYTES # (AUTO) 3.3 /CMM (0.8-4.8); LYMPHOCYTES % (AUTO) 20.2 % (20.0-44.0); MEAN CORPUSCULAR HGB CONC 34 g/dl (31.0-36.0); MEAN CORPUSCULAR VOLUME 72 fL (80-96); MONOCYTES # (AUTO) 0.8 /CMM (0.1-1.30); NEUTROPHILS # (AUTO) 11.2 /CMM (1.8-8.9); NEUTROPHILS % (AUTO) 69.4 % (43.0-81.0); PLATELET COUNT (AUTO) 284 /CMM (150-450); RED BLOOD CELL COUNT(AUTO) 6.01 MIL/uL (4.5-6.0); WHITE BLOOD COUNT (AUTO) 16.1 K/uL (4.3-11.0)
--- NOTE | 2018-03-18 12:03 | NUR ---
HUMBERTO contacted Rober Whittington at [facility] office and notified him the pt. has been hospitalized at [facility] for GTube replacement.
[2018-03-18] MEDS ORDERED: PIPERACILLIN /TAZOBACTAM 3.375 G in IV D5W 50 ML IV SCH (13:00)
--- NOTE | 2018-03-18 16:10 | NUR ---
MS/RN GI notes Per GI notes - may resume feedings as tolerated. For possible PEG tube replacement later in week. Await stoma cultures.
[2018-03-18] MEDS: APIXABAN 5 MG TABLET GT SCH (17:00)
[2018-03-18] MEDS ORDERED: DIATR MEGLU/DIATRIZOATE SODIUM 30 ML BOTTLE (GASTROGRAPHIN) ONE ×2 (17:13→17:29)
[2018-03-18] MEDS: IV D5/0.45 NACL 1,000 ML IV PRN (17:33)
--- NOTE | 2018-03-18 17:59 | NUR ---
MS/RN New order GI informed that GT continues to ooze large amounts of fluids, order given to hold all medications and feedings at this time. KUB with gastrografin ordered.
[2018-03-18] MEDS ORDERED: PIPERACILLIN /TAZOBACTAM 4.5 G in IV D5W 50 ML IV SCH (18:00)
--- NOTE | 2018-03-18 18:02 | NUR ---
MS/RN Dr Liu called Dr Liu called and informed of new order to hold all medications and to obtain order to change keppra from via GT to IV.
--- NOTE | 2018-03-18 18:19 | NUR ---
MS/RN End note No changes in care, will continue to monitor and endorse to shift superintendent.
[2018-03-18] MEDS: PIPERACILLIN /TAZOBACTAM 3.375 G in IV D5W 50 ML IV SCH ×2 (18:37→23:03)
--- NOTE | 2018-03-18 19:20 | NUR ---
MS RN OPENING NOTES: RECEIVED PT IN BED AND IS ON ROOM AIR. PT IS NON-VERBAL. PT OPENS EYES. PT HAS SUPRAPUBIC CATH AND IS ATTACHED TO DRAINAGE BAG WITH URINE DRAINING. PT ALSO HAS NEPHROSTOMY TUBE (LEFT MIDBACK) AND IS ATTACHED TO DRAINAGE BAG WITH YELLOW FLUID DRAINING. NOTED EXCESSIVE LEAKAGE FROM G TUBE. PT HAS IV FLUIDS RUNNING AT D5 1/2NS AT 60MLHR. CALL LIGHT WITHIN PT'S REACH. BED KEPT IN LOW, LOCKED POSITION, AND SIDE RAILS X 2UP. WILL CONTINUE TO MONITOR PT.
[2018-03-18 20:00] VITALS: BP 103/68
[2018-03-18] MEDS: PANTOPRAZOLE 40 MG VIAL IV SCH (20:29)
[2018-03-18] MEDS: LEVETIRACETAM (500MG) 500 MG in IV NS 0.9% 100 ML IV SCH (20:54)
[2018-03-18] MEDS: DOXAZOSIN MESYLATE (1 MG) 1 MG TABLET PO SCH (21:14)
[2018-03-18] MEDS: INSULIN REGULAR, HUMAN 100 UNIT/ML 3 ML VIAL SQ PRN (23:08)
[2018-03-19] MEDS: VANCOMYCIN 1 GM in IV NS 0.9% 250 ML IV SCH ×2 (01:34→14:35)
[2018-03-19] MEDS: MUPIROCIN OINT 2% 22 GM TUBE TP SCH ×2 (02:22→16:23)
[2018-03-19] MEDS: BLOOD SUGAR DIAGNOSTIC 1 EACH STRIP IN SCH ×3 (05:04→17:19)
[2018-03-19] MEDS: PIPERACILLIN /TAZOBACTAM 3.375 G in IV D5W 50 ML IV SCH ×3 (05:05→18:37)
[2018-03-19] MEDS: INSULIN REGULAR, HUMAN 100 UNIT/ML 3 ML VIAL SQ PRN (05:07)
[2018-03-19] MEDS: LEVOTHYROXINE SODIUM 25 MCG TABLET GT SCH (07:30)
--- NOTE | 2018-03-19 07:31 | NUR ---
MS RN CLOSING NOTES: ALL NEEDS WERE ATTENDED AND ANTICIPATED FOR. PT HAS IV AND IS BEING INFUSED WITH D5 1/2 NS AT 60ML/HR. PT HAS G TUBE WITH YELLOW EXCESSIVE FLUID DRAINING OOZING OUT. MEPILEX APPLIED AND TOWELS AROUND TO SOAK UP DRAINAGE. PT HAS SUPRAPUBIC CATH AND OUTPUT WAS 300ML. PT ALSO HAS NEPHROSTOMY TUBE AND OUTPUT WAS 45ML. PT TURNED AND REPOSITIONED Q2HRS. CALL LIGHT WITHIN PT'S REACH. BED KEPT IN LOW, LOCKED POSITION, AND SIDE RAILS X 2UP. ENDORSED TO AM NURSE FOR DOC.
[2018-03-19 07:40] LABS: BASOPHILS # (AUTO) 0.1 /CMM (0.0-0.2); BASOPHILS % (AUTO) 0.4 % (0.0-2.0); EOSINOPHILS % (AUTO) 3.3 % (0.0-6.0); HEMATOCRIT 41 % (39-51); HEMOGLOBIN 12.9 g/dL (13.5-17.5); LYMPHOCYTES # (AUTO) 2.6 /CMM (0.8-4.8); LYMPHOCYTES % (AUTO) 18.9 % (20.0-44.0); MEAN CORPUSCULAR HGB CONC 31 g/dl (31.0-36.0); MEAN CORPUSCULAR VOLUME 73 fL (80-96); MONOCYTES # (AUTO) 0.7 /CMM (0.1-1.30); MONOCYTES % (AUTO) 4.9 % (2.0-12.0); NEUTROPHILS % (AUTO) 72.5 % (43.0-81.0); PLATELET COUNT (AUTO) 253 /CMM (150-450); RDW COEFFICIENT OF VARIATION 19.9 (11.5-15.0); RED BLOOD CELL COUNT(AUTO) 5.59 MIL/uL (4.5-6.0); WHITE BLOOD COUNT (AUTO) 13.8 K/uL (4.3-11.0)
[2018-03-19 07:41] LABS: CALCIUM, SERUM 9.1 mg/dL (8.5-10.1); CREATININE 1.2 mg/dL (0.6-1.3); MAGNESIUM 2.4 mg/dL (1.8-2.4); PHOSPHORUS 3.2 mg/dL (2.5-4.9); POTASSIUM 4.5 mmol/L (3.5-5.1)
[2018-03-19 08:00] VITALS: BP 116/90
[2018-03-19] MEDS: HYDROCODONE/APAP 5/325MG 1 EACH TABLET GT SCH ×3 (08:43→17:00)
[2018-03-19] MEDS: POTASSIUM CHLORIDE 20 MEQ POWDER PACKET GT SCH (08:43)
[2018-03-19] MEDS: APIXABAN 5 MG TABLET GT SCH ×2 (08:43→17:00)
[2018-03-19] MEDS: ASCORBIC ACID 500 MG TABLET GT SCH (08:43)
[2018-03-19] MEDS: FUROSEMIDE 20 MG TABLET GT SCH (08:43)
[2018-03-19] MEDS: LEVETIRACETAM (500MG) 500 MG in IV NS 0.9% 100 ML IV SCH ×2 (08:46→21:08)
--- NOTE | 2018-03-19 12:00 | NUR ---
GTUBE LEAKING CONTENTS. ALL TABLETS HELD. FEEDING HELD. DR OLIVEROS NOTIFIED. DR OLIVEROS ALSO NOTIFIED OF POSITIVE MRSA IN URINE CULTURE
[2018-03-19] MEDS ORDERED: METOCLOPRAMIDE HCL 10 MG/2 ML VIAL IV SCH (15:00)
[2018-03-19 16:00] VITALS: BP 138/65
--- NOTE | 2018-03-19 16:30 | NUR ---
PER ANTONIA ROMAN NP, OBTAIN CONSENT FOR PEG INSERTION
[2018-03-19] MEDS: METOCLOPRAMIDE HCL 10 MG/2 ML VIAL IV SCH (17:23)
--- NOTE | 2018-03-19 18:00 | NUR ---
AWAITING TO OBTAIN CONSENT FOR PEG INSERTION FROM FAMILY . LEFT VOICEMAIL ON AVAILABLE PHONE NUMBER ON FACESHEET.
[2018-03-19] MEDS: IV D5/0.45 NACL 1,000 ML IV PRN (18:36)
--- NOTE | 2018-03-19 19:30 | NUR ---
RN NOTES RECEIVED PATIENT IN BED AWAKE, AO X 1, ABLE TO GESTURE; ABLE TO NOD YES OR SHAKE HEAD NO; APHASIC. NO ACUTE DISTRESS NOTED. NO SIGNS OF PAIN NOTED. LEFT HAND IV SITE PATENT, INTACT; IVF INFUSING ORDERED. GT SITE NOT IN USE; DRESSING CHANGED. SUPRAPUBIC CATHETER PATENT, INTACT; DRAINING CLEAR ARIES URINE. NEPHROSTOMY TUBE PATENT, INTACT; DRAINING CLEAR ARIES FLUID. ON LOW BED WITH BILATERAL UPPER SIDE RAILS UP. CALL DELEON WITHIN EASY REACH. ON CONTACT ISOLATION FOR MRSA IN THE URINE. WILL CONTINUE TO MONITOR.
--- NOTE | 2018-03-19 19:40 | NUR ---
MS CLOSING NOTES: PATIENT RESTING IN BED. NONLABORED BREATHING NOTED ON ROOM AIR. PATIENT NONVERBAL. EYES OPENING SPONTANEOUSLY. IV SITE ON RIGHT ARM GAUGE 20 PATENT AND INTACT. IV SITE ON LEFT HAND 22 PATENT AND INTACT. NO FACIAL GRIMACING NOTED. NEPHROSTOMY TUBE OF LEFT MIDBACK INTACT. SUPRAPUBIC CATHETER DRAINING YELLOW CLOUDY URINE. IV FLUIDS RUNNING PER ORDERS. PATIENT CURRENTLY NPO FOR POSSIBLE PEG INSERTION. PATIENT STABLE THROUGHOUT SHIFT. KEPT CLEAN AND DRY. BED IN LOWEST LOCKED POSITION. CALL LIGHT WITHIN REACH. ENDORSE TO NEXT SHIFT
[2018-03-19 20:00] VITALS: BP 108/75
[2018-03-19] MEDS: PANTOPRAZOLE 40 MG VIAL IV SCH (21:08)
[2018-03-19] MEDS: DOXAZOSIN MESYLATE (1 MG) 1 MG TABLET PO SCH (22:00)
[2018-03-20] MEDS: METOCLOPRAMIDE HCL 10 MG/2 ML VIAL IV SCH ×3 (00:04→17:02)
[2018-03-20] MEDS: PIPERACILLIN /TAZOBACTAM 3.375 G in IV D5W 50 ML IV SCH ×4 (00:05→18:02)
[2018-03-20] MEDS: BLOOD SUGAR DIAGNOSTIC 1 EACH STRIP IN SCH ×4 (00:30→18:13)
[2018-03-20] MEDS: VANCOMYCIN 1 GM in IV NS 0.9% 250 ML IV SCH ×2 (01:41→13:53)
[2018-03-20] MEDS: MUPIROCIN OINT 2% 22 GM TUBE TP SCH ×2 (03:53→15:44)
--- NOTE | 2018-03-20 06:00 | NUR ---
RN NOTES PATIENT ASLEEP, EASILY AROUSABLE. RESPIRATIONS EVEN. NO SIGNS OF PAIN NOTED. DUE IV ATB GIVEN WITH NO ASE NOTED. NEEDS ATTENDED. KEPT CLEAN, DRY, AND COMFORTABLE. SAFETY PRECAUTIONS AND COMFORT MEASURES IN PLACE. WILL GIVE REPORT TO DAY SHIFT FOR CONTINUITY OF CARE.
[2018-03-20] MEDS: LEVOTHYROXINE SODIUM 25 MCG TABLET GT SCH (07:30)
[2018-03-20 08:00] VITALS: BP 100/68
--- NOTE | 2018-03-20 08:38 | NUR ---
PATIENT NOT SCHEDULED FOR PEG INSERTION TODAY- PER DIANNE FROM OR
[2018-03-20] MEDS: APIXABAN 5 MG TABLET GT SCH ×2 (08:39→17:00)
[2018-03-20] MEDS: FUROSEMIDE 20 MG TABLET GT SCH (08:40)
[2018-03-20] MEDS: HYDROCODONE/APAP 5/325MG 1 EACH TABLET GT SCH ×3 (08:40→17:00)
[2018-03-20] MEDS: ASCORBIC ACID 500 MG TABLET GT SCH (08:40)
[2018-03-20] MEDS: POTASSIUM CHLORIDE 20 MEQ POWDER PACKET GT SCH (08:40)
[2018-03-20] MEDS: LEVETIRACETAM (500MG) 500 MG in IV NS 0.9% 100 ML IV SCH ×2 (09:44→20:49)
[2018-03-20 13:48] LABS: CREATININE 1.1 mg/dL (0.6-1.3); POTASSIUM 3.5 mmol/L (3.5-5.1)
[2018-03-20 16:00] VITALS: BP 119/70
[2018-03-20] MEDS: IV D5/0.45 NACL 1,000 ML IV PRN (18:00)
--- NOTE | 2018-03-20 18:17 | NUR ---
CT ABDOMEN WITH CONTRAST ROUTINE PER ANTONIA Fofana NP.
--- NOTE | 2018-03-20 19:15 | NUR ---
CONSENT CONTACTED [facility], PATIENT'S PREVIOUS SNF PER SNF, ONLY CONTACT IS DENICE PATHAK, PATIENT'S ACOUSTICAL TILE DRILL PRESS OPERATOR. CONTACTED AGENT ZO. PER AGENT, FAMILY MEMBERS ARE NOT THE ONES WHO CONSENT FOR MEDICAL PROCEDURES. PER AGENT, IT IS THE PRIMARY HEALTH CARE PROVIDER. CLARIFIED THAT TWICE WITH HIM. PER AGENT ALFREDO, HE IS TO CONTACT US AND PROVIDE US WITH THE PRIMARY PROVIDER'S CONTACT INFORMATION SO WE CAN CLARIFY WHO IS ABLE TO MAKE DECISIONS FOR THIS PATIENT. SISTER OF PATIENT, VISITED PATIENT TODAY. PEG INSERTION DISCUSSED WITH HER. SISTER CONSENT TO PROCEDURE. CONTACTED LORAINE FROM SCALE CLERK. PER LORAINE- CLEARANCE HAS TO COME FROM ACOUSTICAL TILE DRILL PRESS OPERATOR CONTACTED PATIENT ZO AGAIN AND LEFT A VOICEMAIL- AWAITING HIS CALL ANTONIA CASTRO AND DR OLIVEROS NOTIFIED ABOUT THIS. PER ANTONIA, OBTAIN CONSENT FROM SISTER FOR CT OF ABDOMEN WITH CONTRAST ENDORSED TO ELSI GARCIA
--- NOTE | 2018-03-20 19:25 | NUR ---
MS CLOSING NOTES: PATIENT RESTING IN BED. NONLABORED BREATHING NOTED ON ROOM AIR. PATIENT NONVERBAL. EYES OPENING SPONTANEOUSLY. IV SITE ON LEFT HAND 22 PATENT AND INTACT. NO FACIAL GRIMACING NOTED. NEPHROSTOMY TUBE OF LEFT MIDBACK INTACT. SUPRAPUBIC CATHETER DRAINING YELLOW CLOUDY URINE. IV FLUIDS RUNNING PER ORDERS. PATIENT CURRENTLY NPO. GTUBE STILL LEAKING. PATIENT STABLE THROUGHOUT SHIFT. NO FACIAL GRIMACING NOTED DURING SHIFT.KEPT CLEAN AND DRY. BED IN LOWEST LOCKED POSITION. CALL LIGHT WITHIN REACH. NO SEIZURES NOTED. ENDORSE TO NEXT SHIFT
[2018-03-20 20:00] VITALS: BP 127/71
[2018-03-20 20:14] VITALS: BP 127/71
[2018-03-20] MEDS: PANTOPRAZOLE 40 MG VIAL IV SCH (20:49)
[2018-03-20] MEDS: DOXAZOSIN MESYLATE (1 MG) 1 MG TABLET PO SCH (22:00)
[2018-03-21] VITALS (8 sets, daily range): BP systolic 122–162; BP diastolic 70–88
--- NOTE | 2018-03-21 | NUR ---
RN NOTES RECEIVED ORDER FOR MIDLINE INSERTION FROM DR. RODRIGUEZ. WILL ORDER IF PERIPHERAL IV CANNOT BE STARTED ON PATIENT.
[2018-03-21] MEDS: METOCLOPRAMIDE HCL 10 MG/2 ML VIAL IV SCH ×4 (00:32→23:02)
[2018-03-21] MEDS: PIPERACILLIN /TAZOBACTAM 3.375 G in IV D5W 50 ML IV SCH ×3 (00:32→12:24)
[2018-03-21] MEDS: BLOOD SUGAR DIAGNOSTIC 1 EACH STRIP IN SCH ×5 (00:36→23:01)
[2018-03-21] MEDS: VANCOMYCIN 1 GM in IV NS 0.9% 250 ML IV SCH ×2 (01:46→13:42)
[2018-03-21] MEDS: MUPIROCIN OINT 2% 22 GM TUBE TP SCH ×2 (02:13→15:49)
--- NOTE | 2018-03-21 06:25 | NUR ---
RN NOTES PER DR. THIBODEAUX, SISTER MAY GIVE CONSENT FOR PEG PLACEMENT AND OTHER PROCEDURES THAT ARE MEDICALLY NECESSARY. NO NEED TO WAIT FOR JAVA APPLICATION ENGINEER. DIRECTOR ROBERTO HALL.
--- NOTE | 2018-03-21 06:30 | NUR ---
RN NOTES PATIENT ASLEEP, EASILY AROUSABLE. RESPIRATIONS EVEN. NO SIGNS OF PAIN NOTED. DUE IV ATB GIVEN WITH NO ASE NOTED. NEEDS ATTENDED. KEPT CLEAN, DRY, AND COMFORTABLE. TURNED AND REPOSITIONED Q 2 HOURS. NPO. SAFETY PRECAUTIONS AND COMFORT MEASURES IN PLACE. WILL GIVE REPORT TO DAY SHIFT FOR CONTINUITY OF CARE.
[2018-03-21] MEDS ORDERED: ANESTHESIA TRAY IN PYXIS 1 EA TRAY MC ONE (06:34)
--- NOTE | 2018-03-21 07:20 | NUR ---
RN NOTES LEFT MESSAGE FOR AGENT ZO AUTO BODY REPAIR TECHNICIAN THAT PER MD, SISTER'S CONSENT WILL BE ACCEPTED FOR PEG INSERTION DUE TO ITS MEDICAL NECESSITY. WILL WAIT FOR CALL BACK.
[2018-03-21] MEDS: LEVOTHYROXINE SODIUM 25 MCG TABLET GT SCH (07:30)
--- NOTE | 2018-03-21 07:40 | NUR ---
RN NOTES PER OR, PEG INSERTION WILL BE DONE WITHOUT CT OF ABDOMEN.
--- NOTE | 2018-03-21 08:00 | NUR ---
RN NOTES PATIENT A/OX1, NPO AT THIS TIME FOR GT REPLACEMENT, BREATHING EVEN AND UNLABORED, NO DISTRESS NOTED, NO S/SX OF PAIN OR DISCOMFORT, VITALS STABLE, PIV ON RIGHT HAND PATENT AND INTACT, NEEDS ATTENDED AND MET, CALL LIGHT WITHIN REACH, WILL CONTINUE TO MONITOR.
[2018-03-21 08:31] LABS: CALCIUM, SERUM 9.1 mg/dL (8.5-10.1); CREATININE 1.1 mg/dL (0.6-1.3); POTASSIUM 3.9 mmol/L (3.5-5.1)
--- NOTE | 2018-03-21 08:34 | NUR ---
RN NOTES PATIENT TAKEN TO OR FOR GT REPLACEMENT
[2018-03-21] MEDS: APIXABAN 5 MG TABLET GT SCH ×2 (09:00→16:52)
[2018-03-21] MEDS: ASCORBIC ACID 500 MG TABLET GT SCH (09:00)
[2018-03-21] MEDS: POTASSIUM CHLORIDE 20 MEQ POWDER PACKET GT SCH (09:00)
[2018-03-21] MEDS: FUROSEMIDE 20 MG TABLET GT SCH (09:00)
[2018-03-21] MEDS: HYDROCODONE/APAP 5/325MG 1 EACH TABLET GT SCH ×3 (09:00→16:52)
--- NOTE | 2018-03-21 09:30 | NUR ---
RN NOTES PATIENT CAME BACK FROM OR, VITALS STABLE, ORDER TO RESUME PREVIOUS FEEDING CARRIED OUT.
[2018-03-21] MEDS: LEVETIRACETAM (500MG) 500 MG in IV NS 0.9% 100 ML IV SCH ×2 (09:31→20:29)
[2018-03-21] MEDS: GLUCERNA 1.2 1,000 ML BOTTLE GT PRN (09:39)
--- NOTE | 2018-03-21 12:15 | NUR ---
RN NOTES PATIENT RECEIVING 80ML/HR GLUCERNA, RESIDUAL CHECKED AT THIS TIME, GT RESIDUAL SHOWS 150ML, GTF HELD AT THIS TIME, WILL RECHECK IN AN HOUR. WILL INFORM DR. OLIVEROS.
--- NOTE | 2018-03-21 13:20 | NUR ---
RN NOTES PATIENT'S RESIDUAL CHECKED AND NOTED WITH 80CCML/HR. RESUME FEEDING AT 30ML/HR AND WILL INCREASE GRADUALLY.
[2018-03-21] MEDS: LEVOFLOXACIN 500 MG /D5W 100ML 500 MG in PREMIX 1 EA IV SCH (14:56)
[2018-03-21] MEDS: CEFTRIAXONE 1 G in IV D5W 50 ML IV SCH (15:46)
[2018-03-21] MEDS: FLUCONAZOLE IN NS 100 MG in PREMIX 1 EA IV SCH ×2 (16:46)
--- NOTE | 2018-03-21 17:00 | NUR ---
RN NOTES 30CC OF GASTRIC RESIDUAL, NO LEAKAGE AROUND THE GT SITE, WOUND TREATMENT RENDERED, PATIENT'S GTF INCREASED TO 40CC/HR. SKIN CARE RENDERED, TURNED AND REPOSITIONED Q2HRS, NEEDS ATTENDED AND MET, CALL LIGHT WITHINR EACH, WILL CONTINUE TO MONITOR.
--- NOTE | 2018-03-21 19:00 | NUR ---
RN NOTES PATIENT A/OX1, ABLE TO MAKE NEEDS KNOWN BY GESTURES, BREATHING EVEN AND UNLABORED, NO SOB NOTED, PATIENT IS CURRENTLY ON GTF AT 40CC/HR, PATIENT TOLERATING WELL. IVF ON RIGHT HAND #20 RUNNING AT 60ML/HR. ALL NEEDS ATTENDED AND MET, SKIN CARE RENDERED, WILL ENDORSE TO RESIDENTIAL PROGRAM COORDINATOR FOR DOC.
--- NOTE | 2018-03-21 19:00 | NUR ---
MS RN NOTES RECEIVE PT IN BED CAN NOD YES SHAKE HEAD NO MAKES GESTURES, NO S/S OF DISTRESS, STABLE, SAFETY MEASURES IN PLACE, CALL LIGHT WITHIN REACH, WILL CONTINUE TO MONITOR Addendum: 03/21/18 at 2114 by THOM WILLIS RN GT FEEDING RUNNING GLUCERNA 1.2 AT 40 CC/HR TOLERATED WELL
[2018-03-21] MEDS: IV D5/0.45 NACL 1,000 ML IV PRN (20:28)
[2018-03-21] MEDS: PANTOPRAZOLE 40 MG VIAL IV SCH (20:29)
[2018-03-21] MEDS: DOXAZOSIN MESYLATE (1 MG) 1 MG TABLET PO SCH (21:01)
[2018-03-21] MEDS: INSULIN REGULAR, HUMAN 100 UNIT/ML 3 ML VIAL SQ PRN (23:02)
[2018-03-22] MEDS: VANCOMYCIN 1 GM in IV NS 0.9% 250 ML IV SCH ×3 (00:33→13:00)
[2018-03-22] MEDS: MUPIROCIN OINT 2% 22 GM TUBE TP SCH ×2 (02:34→14:21)
--- NOTE | 2018-03-22 05:00 | NUR ---
RN NOTES 20 CC OF GASTRIC RESIDUAL, PATIENT'S GTF INCREASED TO 50CC/HR PER PROTOCOL TOLERATED WELL
[2018-03-22] MEDS: BLOOD SUGAR DIAGNOSTIC 1 EACH STRIP IN SCH ×3 (05:46→16:54)
[2018-03-22] MEDS: INSULIN REGULAR, HUMAN 100 UNIT/ML 3 ML VIAL SQ PRN (05:48)
[2018-03-22 06:02] VITALS: BP 137/97
--- NOTE | 2018-03-22 06:25 | NUR ---
MS RN CLOSING NOTES PATIENT IN BED AND EASILY AWAKEN, TOLERATING ROOM AIR 100% RESPIRATIONS EVEN AND UNLABORED. NONVERBAL. EYES OPENING SPONTANEOUSLY NO FACIAL GRIMACING AND DISTRESS NOTED. GT FEEDING ORDERED 50 CC/HR INFUSING AND TOLERATED WELL. NURSING CARE RENDERED, NEPHROSTOMY TUBE OF LEFT MIDBACK INTACT. SUPRAPUBIC CATHETER DRAINING YELLOW CLOUDY URINE. NEEDS ATTENDED AND ANTICIPATED. KEPT CLEAN AND DRY AND COMFORT. REPOSITIONED EVERY 2 HOURS FOR COMFORT AND SKIN MGT. GOOD SKIN CARE PROVIDED. BED IN LOWEST LOCKED POSITION. CALL LIGHT WITHIN REACH. ENDORSE TO NEXT SHIFT POC.
--- NOTE | 2018-03-22 07:05 | NUR ---
MS/RN Patient received Patient received from patient account liaison. Awake, alert X1, no respiratory distress. IV fluids infusing at 60ml/hr with GT feeding at 50ml/hr. target rate of 80ml. No drainage noted around insertion site. Safety measures in place, bed in low setting, side rails X3 in upright position. Will continue to monitor and ensure safety.
[2018-03-22 07:21] LABS: CALCIUM, SERUM 8.9 mg/dL (8.5-10.1); CREATININE 0.9 mg/dL (0.6-1.3); POTASSIUM 3.4 mmol/L (3.5-5.1)
[2018-03-22 08:00] VITALS: BP 148/84
[2018-03-22] MEDS: METOCLOPRAMIDE HCL 10 MG/2 ML VIAL IV SCH ×2 (08:06→16:10)
[2018-03-22] MEDS: LEVOTHYROXINE SODIUM 25 MCG TABLET GT SCH (08:06)
[2018-03-22] MEDS: APIXABAN 5 MG TABLET GT SCH ×2 (08:06→16:11)
[2018-03-22] MEDS: ASCORBIC ACID 500 MG TABLET GT SCH (08:07)
[2018-03-22] MEDS: POTASSIUM CHLORIDE 20 MEQ POWDER PACKET GT SCH (08:07)
[2018-03-22] MEDS: HYDROCODONE/APAP 5/325MG 1 EACH TABLET GT SCH ×3 (08:07→16:10)
[2018-03-22] MEDS: FUROSEMIDE 20 MG TABLET GT SCH (08:07)
[2018-03-22] MEDS: LEVETIRACETAM (500MG) 500 MG in IV NS 0.9% 100 ML IV SCH ×2 (08:07→20:23)
--- NOTE | 2018-03-22 09:00 | NUR ---
MS/RN Medications Morning medications administered via GT.
--- NOTE | 2018-03-22 10:30 | NUR ---
MS/RN Morning care Morning care provided to patient, GT site and nephrostomy care completed.
--- NOTE | 2018-03-22 12:00 | NUR ---
MS/RN Blood sugar Blood sugar at noon 120, no coverage needed.
--- NOTE | 2018-03-22 12:00 | NUR ---
MS/RN Vanco level [facility] level at 12 - 27, 1p dose held, pharmacy notified. New though ordered for 5p.
[2018-03-22] MEDS: IV D5/0.45 NACL 1,000 ML IV PRN (12:44)
--- NOTE | 2018-03-22 13:00 | NUR ---
MS/RN S/B Dr Liu Seen by Dr Liu - labs ordered for tomorrow. Continue with current plan of care.
--- NOTE | 2018-03-22 14:00 | NUR ---
MS/RN S/B GI Seen by GI - no new orders.
[2018-03-22] MEDS: LEVOFLOXACIN 500 MG /D5W 100ML 500 MG in PREMIX 1 EA IV SCH (14:17)
[2018-03-22] MEDS: CEFTRIAXONE 1 G in IV D5W 50 ML IV SCH (14:22)
--- NOTE | 2018-03-22 16:00 | NUR ---
MS/RN Feeding Feeding on hold for four hours as per ordered, needs to be restarted at 8p.
[2018-03-22 16:05] VITALS: BP 143/75
[2018-03-22] MEDS: FLUCONAZOLE IN NS 100 MG in PREMIX 1 EA IV SCH ×2 (16:10)
[2018-03-22] MEDS: GLUCERNA 1.2 1,000 ML BOTTLE GT PRN ×2 (16:50→19:19)
--- NOTE | 2018-03-22 17:15 | NUR ---
MS/RN Blood sugar Blood sugar at 5p - 84, no coverage needed.
--- NOTE | 2018-03-22 18:09 | NUR ---
MS/RN End note Patient remains in stable condition, all needs attended. Has been turned and repositioned every 2-3 hours to prevent skin breakdown. Bed in low setting, side rails X3 in upright position, will endorse to operation shift supervisor.
--- NOTE | 2018-03-22 18:10 | NUR ---
MS/RN Awaiting vanco level Continue to await vanco level, spoke with Rina in lab, stated that they were fixing the machine.
--- NOTE | 2018-03-22 19:00 | NUR ---
MS RN NOTES RECEIVE PT IN BED NON VERBAL ABLE TO NODS AND MAKE SIMPLE GESTURES NO S/S OF DISTRESS, STABLE, SAFETY MEASURES IN PLACE, CALL LIGHT WITHIN REACH, WILL CONTINUE TO MONITOR
[2018-03-22] MEDS: VANCOMYCIN 1 GM in IV D5W 250 ML IV SCH (19:16)
[2018-03-22 20:00] VITALS: BP 167/78
[2018-03-22 20:10] VITALS: BP 149/74
[2018-03-22] MEDS: PANTOPRAZOLE 40 MG VIAL IV SCH (20:23)
[2018-03-22] MEDS: DOXAZOSIN MESYLATE (1 MG) 1 MG TABLET PO SCH (21:21)
[2018-03-23] MEDS: METOCLOPRAMIDE HCL 10 MG/2 ML VIAL IV SCH ×3 (00:27→16:14)
[2018-03-23] MEDS: BLOOD SUGAR DIAGNOSTIC 1 EACH STRIP IN SCH ×4 (00:30→17:06)
[2018-03-23] MEDS: INSULIN REGULAR, HUMAN 100 UNIT/ML 3 ML VIAL SQ PRN ×2 (00:31→05:32)
[2018-03-23] MEDS: MUPIROCIN OINT 2% 22 GM TUBE TP SCH ×2 (03:01→15:16)
[2018-03-23] MEDS: IV D5/0.45 NACL 1,000 ML IV PRN (05:24)
[2018-03-23 06:17] LABS: EOSINOPHILS % (AUTO) 4.1 % (0.0-6.0); HEMATOCRIT 41 % (39-51); HEMOGLOBIN 12.8 g/dL (13.5-17.5); LYMPHOCYTES # (AUTO) 1.7 /CMM (0.8-4.8); LYMPHOCYTES % (AUTO) 15.8 % (20.0-44.0); MEAN CORPUSCULAR HGB CONC 31 g/dl (31.0-36.0); MEAN CORPUSCULAR VOLUME 74 fL (80-96); MONOCYTES # (AUTO) 0.2 /CMM (0.1-1.30); MONOCYTES % (AUTO) 1.8 % (2.0-12.0); NEUTROPHILS # (AUTO) 8.5 /CMM (1.8-8.9); NEUTROPHILS % (AUTO) 78.3 % (43.0-81.0); PLATELET COUNT (AUTO) 274 /CMM (150-450); RDW COEFFICIENT OF VARIATION 19.9 (11.5-15.0); RED BLOOD CELL COUNT(AUTO) 5.55 MIL/uL (4.5-6.0); WHITE BLOOD COUNT (AUTO) 10.9 K/uL (4.3-11.0)
--- NOTE | 2018-03-23 06:30 | NUR ---
MS RN CLOSING NOTES PATIENT IN BED ASLEEP AND EASILY AWAKEN, NONVERBAL. EYES OPENING SPONTANEOUSLY NO FACIAL GRIMACING AND DISTRESS NOTED. TOLERATING ROOM AIR 100% RESPIRATIONS EVEN AND UNLABORED. GT FEEDING ORDERED 80 CC/HR INFUSING AND TOLERATED WELL. NURSING CARE RENDERED, SUPRAPUBIC CATHETER DRAINING YELLOW CLOUDY URINE.NEPHROSTOMY TUBE OF LEFT MIDBACK INTACT. NEEDS ATTENDED AND ANTICIPATED. KEPT CLEAN AND DRY AND COMFORT. REPOSITIONED EVERY 2 HOURS FOR COMFORT AND SKIN MGT. GOOD SKIN CARE PROVIDED. BED IN LOWEST LOCKED POSITION. CALL LIGHT WITHIN REACH. ENDORSE TO NEXT SHIFT POC.
[2018-03-23 06:41] LABS: CALCIUM, SERUM 8.9 mg/dL (8.5-10.1); CREATININE 0.9 mg/dL (0.6-1.3); MAGNESIUM 1.9 mg/dL (1.8-2.4); PHOSPHORUS 2.7 mg/dL (2.5-4.9); POTASSIUM 3.3 mmol/L (3.5-5.1)
--- NOTE | 2018-03-23 07:10 | NUR ---
MS RN NOTES RECEIVED PATIENT IN BED EYES CLOSED, EASILY AWAKEN ,OPENS EYES SPONTANEOUSLY. NO ACUTE DISTRESS NOTED. BREATHING UNLABORED. GTUBE FEEDING RUNNING. SUPRAPUBIC CATHETER INTACT. NEPHROSTOMY TUBE INTACT. IV ACCESS PATENT AND INTACT.CALL LIGHT WITHIN REACH. SAFETY MEASURES IN PLACE. WILL CONTINUE TO MONITOR ACCORDINGLY.
[2018-03-23 07:16] LABS: EOSINOPHILS % (MANUAL) 5 % (0-4); LYMPHOCYTES % (MANUAL) 20 % (16-48); MONOCYTES % (MANUAL) 7 % (0-11.0); NEUTROPHILS % (MANUAL) 68 (42-76)
[2018-03-23] MEDS: LEVOTHYROXINE SODIUM 25 MCG TABLET GT SCH (08:29)
[2018-03-23] MEDS: POTASSIUM CHLORIDE 20 MEQ POWDER PACKET GT SCH (08:30)
[2018-03-23] MEDS: HYDROCODONE/APAP 5/325MG 1 EACH TABLET GT SCH ×3 (08:31→17:04)
[2018-03-23] MEDS: ASCORBIC ACID 500 MG TABLET GT SCH (08:31)
[2018-03-23] MEDS: FUROSEMIDE 20 MG TABLET GT SCH (08:33)
[2018-03-23] MEDS: APIXABAN 5 MG TABLET GT SCH ×2 (08:34→16:12)
[2018-03-23 08:37] VITALS: BP 143/73
[2018-03-23] MEDS: LEVETIRACETAM (500MG) 500 MG in IV NS 0.9% 100 ML IV SCH ×2 (08:57→20:22)
[2018-03-23] MEDS: VANCOMYCIN 1 GM in IV D5W 250 ML IV SCH (11:23)
[2018-03-23] MEDS ORDERED: POTASSIUM CHLORIDE 20 MEQ POWDER PACKET GT ONE (13:00)
[2018-03-23] MEDS: LEVOFLOXACIN 500 MG /D5W 100ML 500 MG in PREMIX 1 EA IV SCH (13:25)
[2018-03-23] MEDS: CEFTRIAXONE 1 G in IV D5W 50 ML IV SCH (15:15)
[2018-03-23 15:47] VITALS: BP 131/89
[2018-03-23] MEDS: FLUCONAZOLE IN NS 100 MG in PREMIX 1 EA IV SCH ×2 (16:12)
[2018-03-23] MEDS: LACTOBACILLUS RHAMNOSUS GG 1 EACH CAP.SPRINK PO SCH (16:13)
--- NOTE | 2018-03-23 18:22 | NUR ---
MS RN NOTES PATIENT IN BED EYES OPEN, NODS TO RESPOND TO QUESTIONS. NO ACUTE DISTRESS NOTED. BREATHING UNLABORED. GTUBE INTACT. SUPRAPUBIC CATHETER INTACT. NEPHROSTOMY TUBE INTACT. IV ACCESS PATENT AND INTACT. NEEDS ATTENDED AND ANTICIPATED. DUE MEDICATIONS GIVEN, NO ASE NOTED. CALL LIGHT WITHIN REACH. SAFETY MEASURES IN PLACE. WILL CONTINUE TO MONITOR ACCORDINGLY. WILL ENDORSE TO NIGHT NURSE FOR CONTINUITY OF CARE.
--- NOTE | 2018-03-23 19:30 | NUR ---
RN NOTES RECEIVED PATIENT IN BED AWAKE, AO X 1, ABLE TO GESTURE; ABLE TO NOD YES OR SHAKE HEAD NO; APHASIC. NO ACUTE DISTRESS NOTED. NO SIGNS OF PAIN NOTED. LEFT HAND IV SITE PATENT, INTACT; IVF INFUSING ORDERED. GT PATENT, INTACT; IN PLACE VIA AUSCULTATION. WILL START GTF AT 2000 ORDERED. 10 ML RESIDUAL NOTED. SUPRAPUBIC CATHETER PATENT, INTACT; DRAINING CLEAR ARIES URINE. NEPHROSTOMY TUBE PATENT, INTACT; DRAINING CLEAR ARIES FLUID. ON LOW BED WITH BILATERAL UPPER SIDE RAILS UP. CALL DELEON WITHIN EASY REACH. ON CONTACT ISOLATION FOR MRSA IN THE URINE. WILL CONTINUE TO MONITOR.
[2018-03-23 20:00] VITALS: BP 129/78
[2018-03-23] MEDS: PANTOPRAZOLE 40 MG VIAL IV SCH (20:22)
[2018-03-23] MEDS: GLUCERNA 1.2 1,000 ML BOTTLE GT PRN (20:34)
[2018-03-23] MEDS: DOXAZOSIN MESYLATE (1 MG) 1 MG TABLET PO SCH (21:56)
[2018-03-23 23:58] VITALS: BP 129/78
[2018-03-24] MEDS: BLOOD SUGAR DIAGNOSTIC 1 EACH STRIP IN SCH ×4 (00:10→17:44)
[2018-03-24] MEDS: METOCLOPRAMIDE HCL 10 MG/2 ML VIAL IV SCH ×3 (00:11→16:47)
[2018-03-24] MEDS: MUPIROCIN OINT 2% 22 GM TUBE TP SCH ×2 (03:39→15:19)
[2018-03-24] MEDS: VANCOMYCIN 1 GM in IV D5W 250 ML IV SCH (05:36)
[2018-03-24 05:55] LABS: BASOPHILS % (AUTO) 0.2 % (0.0-2.0); EOSINOPHILS % (AUTO) 3.8 % (0.0-6.0); HEMATOCRIT 41 % (39-51); HEMOGLOBIN 12.7 g/dL (13.5-17.5); LYMPHOCYTES # (AUTO) 2.1 /CMM (0.8-4.8); LYMPHOCYTES % (AUTO) 16.6 % (20.0-44.0); MEAN CORPUSCULAR HGB CONC 31 g/dl (31.0-36.0); MEAN CORPUSCULAR VOLUME 74 fL (80-96); MONOCYTES # (AUTO) 0.6 /CMM (0.1-1.30); MONOCYTES % (AUTO) 4.7 % (2.0-12.0); NEUTROPHILS # (AUTO) 9.5 /CMM (1.8-8.9); NEUTROPHILS % (AUTO) 74.7 % (43.0-81.0); PLATELET COUNT (AUTO) 278 /CMM (150-450); RDW COEFFICIENT OF VARIATION 20.1 (11.5-15.0); RED BLOOD CELL COUNT(AUTO) 5.57 MIL/uL (4.5-6.0); WHITE BLOOD COUNT (AUTO) 12.7 K/uL (4.3-11.0)
--- NOTE | 2018-03-24 06:00 | NUR ---
RN NOTES PATIENT ASLEEP, EASILY AROUSABLE. RESPIRATIONS EVEN. NO SIGNS OF PAIN NOTED. DUE MEDS GIVEN WITH NO ASE NOTED. NEEDS ATTENDED. KEPT CLEAN, DRY, AND COMFORTABLE. SAFETY PRECAUTIONS AND COMFORT MEASURES IN PLACE. WILL GIVE REPORT TO DAY SHIFT FOR CONTINUITY OF CARE.
[2018-03-24 06:09] LABS: CALCIUM, SERUM 9.1 mg/dL (8.5-10.1); CREATININE 0.9 mg/dL (0.6-1.3); MAGNESIUM 2.1 mg/dL (1.8-2.4); POTASSIUM 3.6 mmol/L (3.5-5.1)
[2018-03-24 06:42] LABS: EOSINOPHILS % (MANUAL) 1 % (0-4); LYMPHOCYTES % (MANUAL) 17 % (16-48); MONOCYTES % (MANUAL) 6 % (0-11.0); NEUTROPHILS % (MANUAL) 76 (42-76)
[2018-03-24] MEDS: IV D5/0.45 NACL 1,000 ML IV PRN (06:58)
[2018-03-24 08:00] VITALS: BP 133/83
--- NOTE | 2018-03-24 08:00 | NUR ---
MS RN NOTES PATIENT IN BED RESTING NO SOB OR ACUTE DISTRESS NOTED. PATIENT ALERT, ORIENTED X1 NONE VERBAL. WITH SUPRA PUBIC CATH AND NEPHROSTOMY INTACT PATENT. BED IN LOW LOCKED POSITION CALL LIGHT WITHIN REACH. WILL CONTINUE TO MONITOR.
[2018-03-24] MEDS: LEVOTHYROXINE SODIUM 25 MCG TABLET GT SCH (09:10)
[2018-03-24] MEDS: HYDROCODONE/APAP 5/325MG 1 EACH TABLET GT SCH ×3 (09:11→16:47)
[2018-03-24] MEDS: APIXABAN 5 MG TABLET GT SCH ×2 (09:11→16:48)
[2018-03-24] MEDS: FUROSEMIDE 20 MG TABLET GT SCH (09:11)
[2018-03-24] MEDS: ASCORBIC ACID 500 MG TABLET GT SCH (09:12)
[2018-03-24] MEDS: POTASSIUM CHLORIDE 20 MEQ POWDER PACKET GT SCH (09:12)
[2018-03-24] MEDS: LACTOBACILLUS RHAMNOSUS GG 1 EACH CAP.SPRINK PO SCH ×2 (09:12→16:47)
[2018-03-24] MEDS: LEVETIRACETAM (500MG) 500 MG in IV NS 0.9% 100 ML IV SCH (09:25)
--- NOTE | 2018-03-24 14:00 | NUR ---
MS RN NOTES PATIENT HAD MIDLINE G20 INSERTED TOLERATED WELL WILL CONTINUE TO MONITOR.
[2018-03-24] MEDS: LEVOFLOXACIN 500 MG /D5W 100ML 500 MG in PREMIX 1 EA IV SCH (15:18)
[2018-03-24 16:00] VITALS: BP 106/78
[2018-03-24] MEDS: CEFTRIAXONE 1 G in IV D5W 50 ML IV SCH (16:47)
[2018-03-24] MEDS: GLUCERNA 1.2 1,000 ML BOTTLE GT PRN (17:46)
--- NOTE | 2018-03-24 19:15 | NUR ---
MS/RN OPENING NOTES PT RECEIVED AWAKE, LAYING IN BED. NON-VERBAL, A/OX1. ABLE TO NOD YES/NO TO QUESTIONS. ON ROOM AIR, BREATHING EVEN AND UNLABORED. NO S/S OF DISTRESS NOTED. DENIES PAIN AT THIS TIME. GT FEEDING RUNNING ORDERED. SUPRAPUBIC CATHETER IN PLACE DRAINING TO GRAVITY. LEFT NEPHROSTOMY CATHETER IN PLACE AND DRAINING TO GRAVITY. CHANDLER MIDLINE PATENT AND INTACT RUNNING IVF ORDERED. BED IN LOW/LOCKED POSITION WITH CALL LIGHT IN REACH. SIDE RAILS UPX2 AND BED ALARM ON FOR SAFETY. WILL CONTINUE TO MONITOR
--- NOTE | 2018-03-24 19:44 | NUR ---
MS RN NOTES PATIENT IN BED RESTING NO SOB OR ACUTE DISTRESS NOTED. ALL DUE MEDICATIONS ADMINISTERED. ALL NEEDS MET WILL ENDORSE TO PM SHIFT DOC.
[2018-03-24 20:00] VITALS: BP 112/70
[2018-03-24] MEDS: LEVETIRACETAM SOL (5 ML) 100 MG/ML UDC GT SCH (21:30)
[2018-03-24] MEDS: PANTOPRAZOLE 40 MG VIAL IV SCH (21:30)
[2018-03-24] MEDS: DOXAZOSIN MESYLATE (1 MG) 1 MG TABLET PO SCH (21:32)
[2018-03-25] MEDS: BLOOD SUGAR DIAGNOSTIC 1 EACH STRIP IN SCH ×4 (00:49→17:30)
[2018-03-25] MEDS: VANCOMYCIN 1 GM in IV D5W 250 ML IV SCH (00:50)
[2018-03-25] MEDS: METOCLOPRAMIDE HCL 10 MG/2 ML VIAL IV SCH ×3 (00:50→15:28)
[2018-03-25] MEDS: INSULIN REGULAR, HUMAN 100 UNIT/ML 3 ML VIAL SQ PRN ×3 (00:58→17:33)
[2018-03-25] MEDS: IV D5/0.45 NACL 1,000 ML IV PRN (04:08)
[2018-03-25] MEDS: MUPIROCIN OINT 2% 22 GM TUBE TP SCH ×2 (04:09→15:29)
[2018-03-25] MEDS: GLUCERNA 1.2 1,000 ML BOTTLE GT PRN (06:38)
[2018-03-25 07:24] LABS: CALCIUM, SERUM 8.8 mg/dL (8.5-10.1); CREATININE 0.9 mg/dL (0.6-1.3); MAGNESIUM 2.1 mg/dL (1.8-2.4); PHOSPHORUS 2.6 mg/dL (2.5-4.9); POTASSIUM 3.9 mmol/L (3.5-5.1)
--- NOTE | 2018-03-25 07:30 | NUR ---
MS/RN OPENING NOTES PT RESTING COMFORTABLY IN BED. NON-VERBAL. ABLE TO NOD YES/NO TO QUESTIONS. ON ROOM AIR, BREATHING EVEN AND UNLABORED. NO S/S OF DISTRESS NOTED. DENIES PAIN AT THIS TIME. GT FEEDING RUNNING ORDERED. SUPRAPUBIC CATHETER IN PLACE DRAINING TO GRAVITY. LEFT NEPHROSTOMY CATHETER IN PLACE AND DRAINING TO GRAVITY. CHANDLER MIDLINE PATENT AND INTACT RUNNING IVF ORDERED.HEELS OFFLOADED. KEPT CLEAN DRY AND COMFORTABLE . BED IN LOW/LOCKED POSITION WITH CALL LIGHT IN REACH. SIDE RAILS UPX2 AND BED ALARM ON FOR SAFETY WILL CONTINUE TO MONITOR
--- NOTE | 2018-03-25 07:30 | NUR ---
MS/RN CLOSING NOTES PT RESTING COMFORTABLY IN BED. NON-VERBAL. ABLE TO NOD YES/NO TO QUESTIONS. ON ROOM AIR, BREATHING EVEN AND UNLABORED. NO S/S OF DISTRESS NOTED. DENIES PAIN AT THIS TIME. GT FEEDING RUNNING ORDERED. SUPRAPUBIC CATHETER IN PLACE DRAINING TO GRAVITY. LEFT NEPHROSTOMY CATHETER IN PLACE AND DRAINING TO GRAVITY. CHANDLER MIDLINE PATENT AND INTACT RUNNING IVF ORDERED. NO SIGNIFICANT CHANGES OVERNIGHT. WOUND CARE PROVIDED ORDERED. TURNED/REPOSITIONED Q2H, HEELS OFFLOADED. KEPT PT COMFORTABLE DURING SHIFT. BED IN LOW/LOCKED POSITION WITH CALL LIGHT IN REACH. SIDE RAILS UPX2 AND BED ALARM ON FOR SAFETY. ENDORSED TO DAY SHIFT RN DOC.
[2018-03-25 07:38] LABS: BASOPHILS # (AUTO) 0.1 /CMM (0.0-0.2); BASOPHILS % (AUTO) 0.5 % (0.0-2.0); EOSINOPHILS % (AUTO) 3.8 % (0.0-6.0); HEMATOCRIT 38 % (39-51); HEMOGLOBIN 12.1 g/dL (13.5-17.5); LYMPHOCYTES # (AUTO) 2.4 /CMM (0.8-4.8); LYMPHOCYTES % (AUTO) 19.1 % (20.0-44.0); MEAN CORPUSCULAR HGB CONC 32 g/dl (31.0-36.0); MEAN CORPUSCULAR VOLUME 73 fL (80-96); MONOCYTES # (AUTO) 0.7 /CMM (0.1-1.30); MONOCYTES % (AUTO) 5.8 % (2.0-12.0); NEUTROPHILS % (AUTO) 70.8 % (43.0-81.0); PLATELET COUNT (AUTO) 272 /CMM (150-450); RDW COEFFICIENT OF VARIATION 20.7 (11.5-15.0); RED BLOOD CELL COUNT(AUTO) 5.22 MIL/uL (4.5-6.0); WHITE BLOOD COUNT (AUTO) 12.8 K/uL (4.3-11.0)
[2018-03-25 08:00] VITALS: BP 117/72
[2018-03-25] MEDS: HYDROCODONE/APAP 5/325MG 1 EACH TABLET GT SCH ×3 (09:40→16:38)
[2018-03-25] MEDS: ASCORBIC ACID 500 MG TABLET GT SCH (09:41)
[2018-03-25] MEDS: FUROSEMIDE 20 MG TABLET GT SCH (09:41)
[2018-03-25] MEDS: POTASSIUM CHLORIDE 20 MEQ POWDER PACKET GT SCH (09:41)
[2018-03-25] MEDS: LEVETIRACETAM SOL (5 ML) 100 MG/ML UDC GT SCH ×2 (09:42→21:20)
[2018-03-25] MEDS: LEVOTHYROXINE SODIUM 25 MCG TABLET GT SCH (09:42)
[2018-03-25] MEDS: APIXABAN 5 MG TABLET GT SCH ×2 (09:42→16:38)
[2018-03-25] MEDS: LACTOBACILLUS RHAMNOSUS GG 1 EACH CAP.SPRINK PO SCH ×2 (09:42→16:38)
[2018-03-25 09:56] LABS: BAND % (MANUAL) 1 % (0.0-5.0); EOSINOPHILS % (MANUAL) 6 % (0-4); LYMPHOCYTES % (MANUAL) 18 % (16-48); MONOCYTES % (MANUAL) 6 % (0-11.0); NEUTROPHILS % (MANUAL) 69 (42-76)
[2018-03-25] MEDS ORDERED: VANCOMYCIN 1 GM in IV NS 0.9% 250 ML IV SCH (13:00)
[2018-03-25] MEDS: CEFTRIAXONE 1 G in IV D5W 50 ML IV SCH (15:28)
[2018-03-25 16:00] VITALS: BP 120/70
[2018-03-25] MEDS ORDERED: FLUCONAZOLE (100 MG) 100 MG TABLET GT SCH (16:00)
[2018-03-25] MEDS ORDERED: CEFT1FRO2 IV (16:10)
[2018-03-25] MEDS ORDERED: FLUC100T8 PO (16:11)
[2018-03-25] MEDS ORDERED: VANC1PLA9 IV (16:11)
--- NOTE | 2018-03-25 19:30 | NUR ---
MS RN OPENING NOTES: PATIENT IN BED, NON VERBAL, WITH EXPRESSIVE APHASIA BUT ABLE TO MAKE NEEDS KNOWN BY GESTURES. PATIENT ABLE TO FOLLOW COMMANDS. APPEARS CALM AND IN NO DISTRESS, IN NO APPARENT PAIN. PATIENT HAS CHANDLER MIDLINE INTACT AND PATENT TO FLUSH. G TUBE IN PLACE WITH FEEDING OF GLUCERNA 1.2 AT 80 ML/HR. SUPRAPUBIC CATHETER IN PLACE DRAINING DARK YELLOW URINE. NEPHROSTOMY TUBE AT LEFT SIDE OF BACK DRAINING MINIMAL AMOUNT OF PALE YELLOW URINE. PROVIDED FOR COMFORT AND SAFETY. BED IN LOWEST ND LOCKED POSITION, SIDERAILS UP X 3, CALL LIGHT WITHIN REACH. WILL CONT TO MONITOR.
--- NOTE | 2018-03-25 19:40 | NUR ---
MS/RN CLOSING NOTES PT RESTING COMFORTABLY IN BED. NON-VERBAL. ABLE TO NOD YES/NO TO QUESTIONS. ON ROOM AIR, BREATHING EVEN AND UNLABORED. NO S/S OF DISTRESS NOTED. DENIES PAIN AT THIS TIME. GT FEEDING RUNNING ORDERED. SUPRAPUBIC CATHETER IN PLACE DRAINING TO GRAVITY. LEFT NEPHROSTOMY CATHETER IN PLACE AND DRAINING TO GRAVITY. CHANDLER MIDLINE PATENT AND INTACT RUNNING IVF ORDERED.HEELS OFFLOADED. KEPT CLEAN DRY AND COMFORTABLE . BED IN LOW/LOCKED POSITION WITH CALL LIGHT IN REACH. SIDE RAILS UPX2 AND BED ALARM ON FOR SAFETY ENDORSED TO NEXT SHIFT FOR CONTINUITY OF CARE, PT REFUSING PICTURES OF SKIN ATTEMPTED X3 NURSING EDUCATION REINFORCED, PT MOVING NURSES ARMS AWAY WHEN ATTEMPTING AND NODS "NO". REPORT GIVEN TO SHARON CALZADA AT [facility] AND NEXT SHIFT FOR CONTINUITY OF CARE NEXT NURSE TO GIVE REPORT TO EMT
[2018-03-25 20:00] VITALS: BP 124/81
[2018-03-25] MEDS: PANTOPRAZOLE 40 MG VIAL IV SCH (21:20)
[2018-03-25 21:21] VITALS: BP 124/81
[2018-03-25] MEDS: DOXAZOSIN MESYLATE (1 MG) 1 MG TABLET PO SCH (21:21)
--- NOTE | 2018-03-25 22:07 | NUR ---
TELETYPE OR VARITYPE KEYBOARD OPERATOR NOTES: DISCHARGE CARE DONE, REPORT GIVEN TO SHARON AT [facility]. VS CHECKED, STABLE. BELONGINGS RECHECKED. PATIENT'S LEFT EJ PIV REMOVED, CHANDLER MIDLINE INTACT AND PATENT TO FLUSH. PATIENT D'KRYSTIN WITH THE MIDLINE. PATIENT'S SUPRAPUBIC CATHETER AND NEPHROSTOMY TUBE INTACT. GT REMAINS INTACT, WITH CLEAN AND INTACT DRESSING. REPORT GIVEN TO AMBULANCE. PATIENT WAS DISCHARGED FROM [facility]IA [facility] IN STABLE CONDITION.
== END 2018-03-25 22:07 | DRG 393 ==
LOC: ER 12:26 → MEDSG2 14:24
PROVIDERS: ADMIT Nurse Practitioner Acute Care; ATTEND Nurse Practitioner Acute Care
PROC: 0DH63UZ Insertion of Feeding Device into Stomach, Percutaneous Approach (ICD-10-PCS; principal; 2018-03-21 08:41)
PROC: 05HY33Z Insertion of Infusion Device into Upper Vein, Percutaneous Approach (ICD-10-PCS; 2018-03-24)
DX: K94.22 Gastrostomy infection (principal); A41.9 Sepsis, unspecified organism; B37.89 Other sites of candidiasis; R13.10 Dysphagia, unspecified; I11.0 Hypertensive heart disease with heart failure; E44.1 Mild protein-calorie malnutrition; I50.32 Chronic diastolic (congestive) heart failure; L03.311 Cellulitis of abdominal wall; R47.01 Aphasia; N39.0 Urinary tract infection, site not specified; Y83.9 Surgical procedure, unspecified as the cause of abnormal reaction of the patient, or of later complication, without mention of misadventure at the time of the procedure; Z68.25 Body mass index [BMI] 25.0-25.9, adult; Z86.73 Personal history of transient ischemic attack (TIA), and cerebral infarction without residual deficits; E11.9 Type 2 diabetes mellitus without complications; G40.909 Epilepsy, unspecified, not intractable, without status epilepticus; Z79.01 Long term (current) use of anticoagulants; R47.02 Dysphasia; E03.9 Hypothyroidism, unspecified; D72.829 Elevated white blood cell count, unspecified; E86.0 Dehydration; K08.89 Other specified disorders of teeth and supporting structures; B95.62 Methicillin resistant Staphylococcus aureus infection as the cause of diseases classified elsewhere; B96.4 Proteus (mirabilis) (morganii) as the cause of diseases classified elsewhere; B96.89 Other specified bacterial agents as the cause of diseases classified elsewhere; Z16.30 Resistance to unspecified antimicrobial drugs
CPT/HCPCS: 36415; 36569; 43246; 71045-TC; 74018; 80048-TC; 80053-TC; 80061-TC; 80076-TC; 80202-TC; 81000-TC; 82962-TC; 83605-TC; 83735-TC; 84100-TC; 84155; 84165; 84484-TC; 85025-TC; 85730-TC; 87040-TC; 87070-TC; 87081-TC; 87086-TC; 87186-TC; A4216; A4606; A6253; A6402; A6403; C9113; J0696; J1450; J1580; J1815; J1953; J1956; J2543; J2704; J2765; J3370; J3490; J7030; J7050; J7060; Q9963; Z7610